=== PATIENT | female | born 1995 | race Hispanic/Latino ===

== ENCOUNTER 2018-03-05 22:46 | Emergency (ER) | payer SELFPAY ==
[2018-03-05] MEDS ORDERED: ONDANSETRON 4 MG/2 ML VIAL ONE (23:34)
[2018-03-05] MEDS ORDERED: FAMOTIDINE 20 MG TAB ONE (23:36)
[2018-03-06 00:21] LABS: Urine Blood NEGATIVE (NEG); Urine Glucose NEGATIVE (NEG); Urine Protein NEGATIVE (NEG); Urine pH 5.5 (5.0-7.0)
[2018-03-06 00:24] LABS: Absolute Lymphocytes (CBC) 2.5 K/uL (0.7-4.9); Absolute Monocytes 0.5 K/uL (0.1-1.3); Basophils % 0.5 % (0-1.3); Eosinophils % 1.7 % (0-4.4); Hematocrit 41.1 % (36.0-45.0); Lymphocytes % 27.3 % (15.3-44.8); MCH 30.3 pg (27.0-35.0); MCV 91.9 fL (80-100); MPV 8.8 fL (7.6-11.3); Monocytes % 5.6 % (3.3-12.3); RBC Red Blood Cell Count 4.47 M/uL (3.86-4.86)
[2018-03-06 00:28] LABS: Bicarbonate 27 mEq/L (21-31); Glucose Level 100 mg/dL (65-120); Lipase 12 U/L (22-51); Potassium 4.1 mEq/L (3.6-5.0); Sodium Level 140 mEq/L (135-145)
[2018-03-06 00:34] LABS: ALT/SGPT 23 IU/L (10-60); AST/SGOT 19 IU/L (10-42); Albumin 4.7 g/dL (3.2-5.5); Alkaline Phosphatase 67 IU/L (42-121); Amylase Level 66 U/L (28-100); BUN Blood Urea Nitrogen 14 mg/dL (6-20); Bilirubin Direct < 0.1 mg/dL (0-0.2); Bilirubin Total 0.3 mg/dL (0.3-1.2); Protein, Total 8.4 g/dL (6.0-8.3)
--- NOTE | 2018-03-06 00:44 | ER ---
Nurse's Notes [facility] Name: Randolph Metzger Age: 22 yrs Sex: Female : 1995 Arrival Date: 03/05/2018 Time: 22:50 Bed 27 Private MD: Diagnosis: Abdominal tenderness;Cystitis;Functional dyspepsia Presentation: 03/05 23:05 Presenting complaint: Patient states: Abdominal pain that began yesterday, pain worse lp1 today; Patient pointing to epigastric region; States radiating to back, worse when eating; Nausea, denies vomiting, diarrhea, constipation. Transition of care: patient was not received from another setting of care. Onset of symptoms was March 04, 2018. Initial Sepsis Screen: Does the patient meet any 2 criteria? No. Patient's initial sepsis screen is negative. Does the patient have a suspected source of infection? No. Patient's initial sepsis screen is negative. Care prior to arrival: None. 23:05 Method Of Arrival: Ambulatory lp1 23:05 Acuity: SOPHIA 3 lp1 Triage Assessment: 23:08 General: Appears in no apparent distress. Behavior is calm, cooperative, appropriate lp1 for age. Pain: Complains of pain in epigastric area Pain radiates to back Pain currently is 6 out of 10 on a pain scale. Quality of pain is described as aching, Pain began 1 day ago. Is intermittent. EENT: No signs and/or symptoms were reported regarding the EENT system. Neuro: Level of Consciousness is awake, alert, obeys commands, Oriented to person, place, time, situation. Cardiovascular: Patient's skin is warm and dry. Respiratory: Respiratory effort is even, unlabored. GI: Abdomen is non-distended, Bowel sounds present X 4 quads. Abdomen is tender to palpation in epigastric area Reports upper abdominal pain, nausea. : Denies burning with urination. Derm: Skin is pink, warm \T\ dry. Musculoskeletal: Circulation, motion, and sensation intact. 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 - Social history:: Smoking status: Patient/guardian denies using tobacco. Screenin:08 Abuse screen: Denies threats or abuse. Denies injuries from another. Nutritional lp1 screening: No deficits noted. Tuberculosis screening: No symptoms or risk factors identified. Fall Risk None identified. Assessment: 23:09 Reassessment: See Triage assessment. lp1 03/06 00:00 Reassessment: Patient appears in no apparent distress at this time. No changes from lp1 previously documented assessment. Patient and/or family updated on plan of care and expected duration. Pain level reassessed. 01:00 Reassessment: Dr. Angulo at bedside to assess patient. lp1 01:35 Reassessment: Patient returned from CT at this time. lp1 02:30 Reassessment: Patient and/or family updated on plan of care and expected duration. Pain lp1 level reassessed. Patient is alert, oriented x 3, equal unlabored respirations, skin warm/dry/pink. 03:30 Reassessment: Patient appears in no apparent distress at this time. No changes from lp1 previously documented assessment. Patient and/or family updated on plan of care and expected duration. Pain level reassessed. 04:30 Reassessment: Dr. Angulo at bedside to discuss discharge with patient; Patient states lp1 pain to epigastric area returning, Dr. Angulo aware; See [employer] for new orders;. Vital Signs: 03/05 23:07 BP 158 / 100; Pulse 79; Resp 18; Temp 98.6; Pulse Ox 100% on R/A; Weight 99.79 kg; lp1 Height 5 ft. 2 in. (157.48 cm); Pain 6/10; 23:54 BP 143 / 85; Pulse 94; Resp 18; Pulse Ox 98% on R/A; lp1 03/06 00:30 BP 134 / 89; Pulse 90; Resp 18; Pulse Ox 100% on R/A; lp1 01:15 BP 127 / 68; Pulse 92; Resp 18; Pulse Ox 100% on R/A; lp1 02:00 BP 113 / 77; Pulse 75; Resp 18; Pulse Ox 100% on R/A; lp1 03:00 BP 130 / 85; Pulse 83; Resp 18; Pulse Ox 100% on R/A; lp1 03:45 BP 112 / 67; Pulse 64; Resp 18; Pulse Ox 99% on R/A; lp1 04:45 BP 125 / 80; Pulse 72; Resp 18; Temp 98.8(O); Pulse Ox 99% on R/A; lp1 03/05 23:07 Body Mass Index 40.24 (99.79 kg, 157.48 cm) lp1 ED Course: 03/05 22:50 Patient arrived in ED. do 23:05 Sonia Gale, ZURI is Primary Nurse. lp1 23:07 Triage completed. lp1 23:07 Neeraj Dietrich MD is Attending Physician. sheila 23:07 Arm band placed on left wrist. lp1 23:10 Patient has correct armband on for positive identification. Placed in gown. Bed in low lp1 position. Pulse ox on. NIBP on. 23:43 X-ray completed. Portable x-ray completed in exam room. Patient tolerated procedure kw well. 23:53 Inserted saline lock: 20 gauge in right antecubital area, using aseptic technique. lp1 Blood collected. 03/06 00:43 Naeem Angulo MD is Hospitalizing Provider. [facility] 00:54 Chest Single View XRAY In Process Unspecified. EDMS 01:41 No provider procedures requiring assistance completed. Patient admitted, IV remains in lp1 place. 05:16 IV discontinued, No redness/swelling at site. Pressure dressing applied. lp1 Administered Medications: 03/05 23:53 Drug: Zofran 4 mg Route: IVP; Site: right antecubital; lp1 03/06 01:42 Follow up: Response: Nausea is decreased lp1 03/05 23:53 Drug: Pepcid 20 mg {Note: Given orally, no IV med available.} Route: IVP; Site: Other; lp1 03/06 01:42 Follow up: Response: No adverse reaction lp1 04:37 Drug: Zosyn 3.375 grams Route: IVPB; Infused Over: 60 mins; Site: right antecubital; lp1 05:17 Follow up: IV Status: Completed infusion lp1 04:39 Not Given (Med unavailable): fentaNYL (PF) 25 mcg IVP once lp1 Outcome: 00:43 Decision to Hospitalize by Provider. sheila 01:42 Condition: stable lp1 01:42 Instructed on the need for admit. 05:16 Discharged to home ambulatory, with significant other. lp1 05:16 Condition: stable 05:16 Discharge instructions given to patient, significant other, Instructed on discharge instructions, follow up and referral plans. medication usage, Demonstrated understanding of instructions, follow-up care, medications, Prescriptions given X 2. 05:17 Patient left the ED. lp1 Signatures: Dispatcher [employer] EDNeeraj Osborne MD MD cha Whitley, Kimberlee kw Pena, Laura, RN RN lp1 Lizet Christy do Corrections: (The following items were deleted from the chart) 04:40 04:30 Reassessment: Dr. Angulo at bedside to discuss discharge with patient lp1 lp1 05:17 04:30 Reassessment: Dr. Angulo at bedside to discuss discharge with patient; Patient lp1 states pain to epigastric area returning, Dr. Angulo aware; See [employer] for new orders lp1
--- NOTE | 2018-03-06 00:44 | EDPHYS ---
Physician Documentation [facility] Name: Randolph Metzger Age: 22 yrs Sex: Female : 1995 Arrival Date: 03/05/2018 Time: 22:50 Bed 27 Private MD: ED Physician Neeraj Dietrich HPI: 03/05 23:26 This 22 yrs old Female presents to ER via Ambulatory with complaints of sheila Abdominal Pain, Back Pain. 23:26 The patient presents with pain that is acute. 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 - Social history:: Smoking status: Patient/guardian denies using tobacco. ROS: 23:26 Constitutional: Negative for fever, chills, and weight loss, Eyes: Negative for injury, sheila pain, redness, and discharge, ENT: Negative for injury, pain, and discharge, Neck: Negative for injury, pain, and swelling, Cardiovascular: Negative for chest pain, palpitations, and edema, Respiratory: Negative for shortness of breath, cough, wheezing, and pleuritic chest pain, Back: Negative for injury and pain, : Negative for injury, bleeding, discharge, and swelling, MS/Extremity: Negative for injury and deformity, Skin: Negative for injury, rash, and discoloration, Neuro: Negative for headache, weakness, numbness, tingling, and seizure, Psych: Negative for depression, anxiety, suicide ideation, homicidal ideation, and hallucinations, Allergy/Immunology: Negative for hives, rash, and allergies, Endocrine: Negative for neck swelling, polydipsia, polyuria, polyphagia, and marked weight changes, Hematologic/Lymphatic: Negative for swollen nodes, abnormal bleeding, and unusual bruising. 23:26 Abdomen/GI: Positive for abdominal pain, of the epigastric area and right upper quadrant. Exam: 23:26 Constitutional: This is a well developed, well nourished patient who is awake, alert, sheila and in no acute distress. Head/Face: Normocephalic, atraumatic. Eyes: Pupils equal round and reactive to light, extra-ocular motions intact. Lids and lashes normal. Conjunctiva and sclera are non-icteric and not injected. Cornea within normal limits. Periorbital areas with no swelling, redness, or edema. ENT: Nares patent. No nasal discharge, no septal abnormalities noted. Tympanic membranes are normal and external auditory canals are clear. Oropharynx with no redness, swelling, or masses, exudates, or evidence of obstruction, uvula midline. Mucous membranes moist. Neck: Trachea midline, no thyromegaly or masses palpated, and no cervical lymphadenopathy. Supple, full range of motion without nuchal rigidity, or vertebral point tenderness. No Meningismus. Chest/axilla: Normal chest wall appearance and motion. Nontender with no deformity. No lesions are appreciated. Cardiovascular: Regular rate and rhythm with a normal S1 and S2. No gallops, murmurs, or rubs. Normal PMI, no JVD. No pulse deficits. Respiratory: Lungs have equal breath sounds bilaterally, clear to auscultation and percussion. No rales, rhonchi or wheezes noted. No increased work of breathing, no retractions or nasal flaring. Back: No spinal tenderness. No costovertebral tenderness. Full range of motion. Female : Normal external genitalia. Skin: Warm, dry with normal turgor. Normal color with no rashes, no lesions, and no evidence of cellulitis. MS/ Extremity: Pulses equal, no cyanosis. Neurovascular intact. Full, normal range of motion. Neuro: Awake and alert, GCS 15, oriented to person, place, time, and situation. Cranial nerves II-XII grossly intact. Motor strength 5/5 in all extremities. Sensory grossly intact. Cerebellar exam normal. Normal gait. Psych: Awake, alert, with orientation to person, place and time. Behavior, mood, and affect are within normal limits. 23:26 Respiratory: mild respiratory distress is noted, Respirations: normal, Breath sounds: are clear throughout, no bronchial sounds, no decreased breath sounds, no rales, rhonchi, no stridor, no wheezing. Vital Signs: 23:07 BP 158 / 100; Pulse 79; Resp 18; Temp 98.6; Pulse Ox 100% on R/A; Weight 99.79 kg; lp1 Height 5 ft. 2 in. (157.48 cm); Pain 6/10; 23:54 BP 143 / 85; Pulse 94; Resp 18; Pulse Ox 98% on R/A; lp1 03/06 00:30 BP 134 / 89; Pulse 90; Resp 18; Pulse Ox 100% on R/A; lp1 01:15 BP 127 / 68; Pulse 92; Resp 18; Pulse Ox 100% on R/A; lp1 02:00 BP 113 / 77; Pulse 75; Resp 18; Pulse Ox 100% on R/A; lp1 03:00 BP 130 / 85; Pulse 83; Resp 18; Pulse Ox 100% on R/A; lp1 03:45 BP 112 / 67; Pulse 64; Resp 18; Pulse Ox 99% on R/A; lp1 04:45 BP 125 / 80; Pulse 72; Resp 18; Temp 98.8(O); Pulse Ox 99% on R/A; lp1 03/05 23:07 Body Mass Index 40.24 (99.79 kg, 157.48 cm) lp1 MDM: 03/05 23:07 [facility]. [facility] 23:27 Data reviewed: vital signs, nurses notes, lab test result(s), EKG, radiologic studies, [facility] scan, plain films. 03/05 23:17 Order name: Urine Culture [facility] 03/05 23:18 Order name: Urine Dipstick--Ancillary (enter results); Complete Time: 00:41 [facility] 03/05 23:18 Order name: Urine --Ancillary (enter results); Complete Time: 00:41 [facility] 03/05 23:24 Order name: Amylase, Serum; Complete Time: 00:41 [facility] 03/05 23:24 Order name: Basic Metabolic Panel; Complete Time: 00:41 [facility] 03/05 23:24 Order name: CBC with Diff; Complete Time: 00:41 [facility] 03/05 23:24 Order name: Creatinine for Radiology; Complete Time: 00:41 [facility] 03/05 23:24 Order name: Hepatic Function; Complete Time: 00:41 [facility] 03/05 23:24 Order name: Lipase; Complete Time: 00:41 [facility] 03/05 23:24 Order name: Urine Microscopic Only [facility] 03/05 23:24 Order name: Urine Culture [facility] 03/05 23:24 Order name: Chest Single View XRAY [facility] 03/05 23:24 Order name: CT Abd/Pelvis - W/Contrast [facility] 03/05 23:17 Order name: Urine Dipstick-Ancillary (obtain specimen); Complete Time: 23:17 [facility] 03/05 23:18 Order name: Urine Dipstick-Ancillary (obtain specimen); Complete Time: 23:18 [facility] 03/05 23:18 Order name: Urine Test (obtain specimen); Complete Time: 23:18 [facility] 03/05 23:24 Order name: Urine Test (obtain specimen); Complete Time: 23:28 [facility] 03/05 23:24 Order name: IV Saline Lock; Complete Time: 23:53 [facility] 03/05 23:24 Order name: Labs collected and sent; Complete Time: 23:53 [facility] 03/05 23:24 Order name: Urine Dipstick-Ancillary (obtain specimen); Complete Time: 23:28 [facility] 03/06 00:50 Order name: CONS Physician Consult EDMS 03/06 00:50 Order name: NPO EDMS Administered Medications: 23:53 Drug: Zofran 4 mg Route: IVP; Site: right antecubital; [facility] 03/06 01:42 Follow up: Response: Nausea is decreased [facility] 03/05 23:53 Drug: Pepcid 20 mg {Note: Given orally, no IV med available.} Route: IVP; Site: Other; [facility] 03/06 01:42 Follow up: Response: No adverse reaction 1 04:37 Drug: Zosyn 3.375 grams Route: IVPB; Infused Over: 60 mins; Site: right antecubital; [facility] 05:17 Follow up: IV Status: Completed infusion lp1 04:39 Not Given (Med unavailable): fentaNYL (PF) 25 mcg IVP once lp1 Disposition: 03/06/18 00:43 Hospitalization ordered by Naeem Angulo for Observation. Preliminary diagnosis are Abdominal tenderness, Cystitis, Functional dyspepsia. - Bed requested for Telemetry/MedSurg (observation). - Status is Observation. lp1 - Condition is Stable. - Problem is new. - Symptoms have improved. UTI on Admission? Yes Signatures: Dispatcher [employer] EDMS Neeraj Dietrich MD MD cha Martinez, Eric em1 Sonia Gale, RN RN lp1
[2018-03-06 01:00] LABS: Urine Culture Reflex Order NOT NEEDED
[2018-03-06] MEDS ORDERED: NA CHLORIDE 0.9% 1,000 ML IV SCH (01:00)
[2018-03-06 01:01] LABS: Urine Bacteria <20 /HPF (<20); Urine RBC <5 /HPF (NONE SEEN)
[2018-03-06] MEDS ORDERED: PIPER/TAZO/NS 3.375gm 3.375 GM/100 ML BAG ONE (04:27)
[2018-03-06] MEDS ORDERED: HYDROCODONE/APAP 10/325 TAB PO ONE (04:38)
[2018-03-06] MEDS ORDERED: HYDROCODONE/APAP 10/325 TAB ONE (04:41)
--- NOTE | 2018-03-06 07:40 | RAD REPORT ---
EXAM DESCRIPTION: CT - Abdomen Pelvis W Contrast - 03/06/2018 6:43 am CLINICAL HISTORY: Abdominal pain. Epigastric pain since yesterday nausea COMPARISON: None. TECHNIQUE: Computed axial tomography of the abdomen and pelvis was obtained. 100 cc Isovue-300 is ad ministered intravenously. Oral contrast was given.A preliminary report was generated by [employer] and review prior to this dictation All CT scans are performed using dose optimization technique as appropriate and may include automated exposure control or mA/KV adjustment according to patient size. FINDINGS: A small to moderate hiatal hernia is present. Contrast is present within the esophagus. Fatty infiltration liver seen. Spleen, pancreas, adrenals and kidneys appear unremarkable. The appendix is normal caliber. There is no evidence of diverticulitis IMPRESSION: Small to moderate hiatal hernia with gastroesophageal reflux Fatty infiltration liver
--- NOTE | 2018-03-06 07:40 | RAD REPORT ---
EXAM DESCRIPTION: [place] Single View03/06/2018 12:54 am CLINICAL HISTORY: Chest pain COMPARISON: none FINDINGS: The lungs appear clear of acute infiltrate. The heart is normal size IMPRESSION: No acute abnormalities displayed
[2018-03-06] MEDS ORDERED: PIPER/TAZO/NS 3.375gm 3.375 GM/100 ML BAG IVPB SCH (09:00)
== END 2018-03-06 05:18 | disposition home or self-care (01) ==
LOC: ER 22:46 → ERHOLD 03-06 00:44 → UNDOADMOB 03-06 00:44 → UNDODISOB 03-06 05:18 → ER 03-06 05:18
DX: N30.90 Cystitis, unspecified without hematuria (principal); K30 Functional dyspepsia
CPT/HCPCS: 36415; 71045; 74177; 80048; 80076; 81003; 81015; 81025; 82150; 83690; 85025; 87086; 87088; 99284; J2405; J2543; Q9967

== ENCOUNTER 2019-04-01 21:38 | Emergency (ER) | payer SELFPAY ==
[2019-04-01 22:48] LABS: Absolute Lymphocytes (CBC) 1.3 K/uL (0.7-4.9); Absolute Monocytes 0.4 K/uL (0.1-1.3); Absolute Neutrophil 5.6 K/uL (1.8-8.0); Basophils % 0.5 % (0-1.3); Eosinophils % 2.1 % (0-4.4); Hematocrit 40.3 % (36.0-45.0); Lymphocytes % 17.1 % (15.3-44.8); Monocytes % 5.4 % (3.3-12.3); RBC Red Blood Cell Count 4.27 M/uL (3.86-4.86)
[2019-04-01 23:00] LABS: Bilirubin Direct 0.1 mg/dL (0-0.2); Bilirubin Total 0.4 mg/dL (0.2-1.0); Potassium 4.1 mmol/L (3.5-5.1)
[2019-04-01] MEDS ORDERED: LIDOCAINE VISCOUS 2% SOLN 15 ML UDC ONE (23:47)
[2019-04-01] MEDS ORDERED: MAGNE/ALUM HYDROXD 30 ML UCUP ONE (23:47)
[2019-04-01] MEDS ORDERED: NA CHLORIDE 0.9% 1,000 ML ONE (23:47)
[2019-04-02 01:10] LABS: Urine Blood NEGATIVE (NEG); Urine Glucose NEGATIVE (NEG); Urine Protein 1+ (NEG); Urine Specific Gravity 1.025 (1.005-1.030); Urine pH 6.5 (5.0-7.0)
--- NOTE | 2019-04-02 01:36 | ER ---
Nurse's Notes [facility] Name: Randolph Metzger Age: 23 yrs Sex: Female : 1995 Arrival Date: 04/01/2019 Time: 21:43 Bed 15 Private MD: Diagnosis: Unspecified abdominal pain Presentation: 04/01 21:44 Presenting complaint: Patient states: I have been having stomach pain, nausea, and ed1 diarrhea since Friday. Transition of care: patient was not received from another setting of care. Onset of symptoms was March 29, 2019. Risk Assessment: Do you want to hurt yourself or someone else? Patient reports no desire to harm self or others. Initial Sepsis Screen: Does the patient meet any 2 criteria? No. Patient's initial sepsis screen is negative. Does the patient have a suspected source of infection? No. Patient's initial sepsis screen is negative. Care prior to arrival: None. 21:44 Method Of Arrival: Ambulatory ed1 21:44 Acuity: SOPHIA 3 ed1 Triage Assessment: 21:45 General: Appears in no apparent distress. Behavior is calm, cooperative. Pain: ed1 Complains of pain in epigastric area Pain radiates to back, right upper quadrant and right lower quadrant Pain currently is 0 out of 10 on a pain scale. at worst was 8 out of 10 on a pain scale. Quality of pain is described as sharp. GI: Abdomen is non-distended, Bowel sounds present X 4 quads. Abd is soft and non tender X 4 quads. Reports upper abdominal pain, diarrhea, nausea, Patient currently denies vomiting. 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 - Social history:: Smoking status: Patient uses tobacco products, denies chronic smoking, but will smoke occasionally. - Ebola Screening: : Patient negative for fever greater than or equal to 101.5 degrees Fahrenheit, and additional compatible Ebola Virus Disease symptoms Patient denies exposure to infectious person Patient denies travel to an Ebola-affected area in the 21 days before illness onset No symptoms or risks identified at this time. Screenin:07 Abuse screen: Denies threats or abuse. Denies injuries from another. Nutritional wh screening: No deficits noted. Tuberculosis screening: No symptoms or risk factors identified. Fall Risk None identified. Assessment: 22:41 General: Appears in no apparent distress. Behavior is calm, cooperative, appropriate wh for age. Pain: Complains of pain in epigastric area Pain radiates to lower back Pain currently is 5 out of 10 on a pain scale. Pain began 2-3 days ago. Neuro: Level of Consciousness is awake, alert, obeys commands, Oriented to person, place, time, situation, Appropriate for age. Cardiovascular: Heart tones S1 S2. Respiratory: Airway is patent Respiratory effort is even, unlabored, Respiratory pattern is regular, symmetrical, Breath sounds are clear. GI: Abdomen is round non-distended, Bowel sounds present X 4 quads. Abd is soft and non tender. : No signs and/or symptoms were reported regarding the genitourinary system. EENT: No signs and/or symptoms were reported regarding the EENT system. Derm: Skin is intact, is healthy with good turgor, Skin is pink, warm \T\ dry. normal. Musculoskeletal: Range of motion: intact in all extremities. 23:45 Reassessment: Patient appears in no apparent distress at this time. Patient and/or family updated on plan of care and expected duration. Pain level reassessed. Patient is alert, oriented x 3, equal unlabored respirations, skin warm/dry/pink. 04/02 00:35 Reassessment: Patient appears in no apparent distress at this time. Patient and/or family updated on plan of care and expected duration. Pain level reassessed. Patient is alert, oriented x 3, equal unlabored respirations, skin warm/dry/pink. 01:53 Reassessment: Patient appears in no apparent distress at this time. Patient and/or family updated on plan of care and expected duration. Pain level reassessed. Patient is alert, oriented x 3, equal unlabored respirations, skin warm/dry/pink. Patient states feeling better. Vital Signs: 04/01 21:45 BP 145 / 80; Pulse 87; Resp 18; Temp 97.6(TE); Pulse Ox 99% on R/A; Weight 106.59 kg; ed1 Height 5 ft. 2 in. (157.48 cm); Pain 0/10; 22:46 BP 107 / 78; Pulse 90; Resp 18; Temp 98.1; Pulse Ox 96% on R/A; wh 23:30 BP 117 / 79; Pulse 87; Resp 17; Pulse Ox 99% on R/A; 04/02 00:37 BP 113 / 72; Pulse 76; Resp 18; Pulse Ox 100% on R/A; 01:54 BP 108 / 74; Pulse 84; Resp 18; Pulse Ox 99% on R/A; 04/01 21:45 Body Mass Index 42.98 (106.59 kg, 157.48 cm) ed1 ED Course: 04/01 21:43 Patient arrived in ED. es 21:45 Triage completed. ed1 21:45 Arm band placed on left wrist. ed1 21:49 Nic Bowser is Primary Nurse. 21:54 Sanjeev Blue NP is PHCP. pm1 21:54 Carlos Morgan MD is Attending Physician. pm1 22:10 Patient has correct armband on for positive identification. Placed in gown. Bed in low wh position. Call light in reach. Side rails up X 1. Pulse ox on. NIBP on. 22:20 Inserted saline lock: 22 gauge in right antecubital area, using aseptic technique. Blood collected. 04/02 01:02 CT Abd/Pelvis - W/Contrast In Process Unspecified. EDMS 01:55 No provider procedures requiring assistance completed. IV discontinued, intact, bleeding controlled, No redness/swelling at site. Administered Medications: 04/01 23:41 Drug: NS 0.9% 1000 ml Route: IV; Rate: 1000 ml; Site: right antecubital; 04/02 01:57 Follow up: Response: No adverse reaction; IV Status: Completed infusion 04/01 23:41 Drug: GI Cocktail without - (Maalox Suspension 30 ml, Lidocaine Liquid 2 % 15 wh ml) Route: PO; 04/02 01:55 Follow up: Response: No adverse reaction Outcome: 01:36 Discharge ordered by . pm1 01:56 Discharged to home ambulatory, with significant other. 01:56 Condition: good 01:56 Discharge instructions given to patient, Instructed on discharge instructions, follow up and referral plans. medication usage, POC Abd Pain Demonstrated understanding of instructions, follow-up care, medications, POC Prescriptions given X 2. 01:56 Patient left the ED. Signatures: Dispatcher [employer] Ngoc Fontana Erika RN RN ed1 Sanjeev Blue, LITHOGRAPHIC ETCHER LITHOGRAPHIC ETCHER pm1 Nic Bowser
--- NOTE | 2019-04-02 01:36 | EDPHYS ---
Physician Documentation [facility] Name: Randolph Metzger Age: 23 yrs Sex: Female : 1995 Arrival Date: 04/01/2019 Time: 21:43 Bed 15 Private MD: ED Physician Carlos Morgan HPI: 04/01 22:26 This 23 yrs old Female presents to ER via Ambulatory with complaints of pm1 Abdominal Pain. 22:26 The patient presents with abdominal pain in the epigastric area. pm1 22:26 Onset: The symptoms/episode began/occurred 3 day(s) ago. The symptoms do not radiate. pm1 Associated signs and symptoms: Pertinent positives: nausea, Pertinent negatives: chest pain, constipation, diarrhea, dysuria, fever, shortness of breath, vomiting. The symptoms are described as burning. Modifying factors: The symptoms are alleviated by not eating as much today. the symptoms are aggravated by food. Severity of pain: in the emergency department the pain has improved markedly. The patient has experienced a previous episode, approximately 1 years ago. The patient has not recently seen a physician. 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 - Social history:: Smoking status: Patient uses tobacco products, denies chronic smoking, but will smoke occasionally. - Ebola Screening: : Patient negative for fever greater than or equal to 101.5 degrees Fahrenheit, and additional compatible Ebola Virus Disease symptoms Patient denies exposure to infectious person Patient denies travel to an Ebola-affected area in the 21 days before illness onset No symptoms or risks identified at this time. ROS: 22:26 Constitutional: Negative for fever, chills, and weight loss, Eyes: Negative for injury, pm1 pain, redness, and discharge, ENT: Negative for injury, pain, and discharge, Neck: Negative for injury, pain, and swelling, Cardiovascular: Negative for chest pain, palpitations, and edema, Respiratory: Negative for shortness of breath, cough, wheezing, and pleuritic chest pain. 22:26 Back: Negative for injury and pain, : Negative for injury, bleeding, discharge, and swelling, MS/Extremity: Negative for injury and deformity, Skin: Negative for injury, rash, and discoloration, Neuro: Negative for headache, weakness, numbness, tingling, and seizure. 22:26 Abdomen/GI: Positive for abdominal pain, nausea, of the epigastric area, Negative for vomiting, diarrhea, constipation. Exam: 22:26 Constitutional: This is a well developed, well nourished patient who is awake, alert, pm1 and in no acute distress. Head/Face: Normocephalic, atraumatic. Eyes: Pupils equal round and reactive to light, extra-ocular motions intact. Lids and lashes normal. Conjunctiva and sclera are non-icteric and not injected. Cornea within normal limits. Periorbital areas with no swelling, redness, or edema. ENT: Nares patent. No nasal discharge, no septal abnormalities noted. Tympanic membranes are normal and external auditory canals are clear. Oropharynx with no redness, swelling, or masses, exudates, or evidence of obstruction, uvula midline. Mucous membranes moist. Neck: Trachea midline, no thyromegaly or masses palpated, and no cervical lymphadenopathy. Supple, full range of motion without nuchal rigidity, or vertebral point tenderness. No Meningismus. Chest/axilla: Normal chest wall appearance and motion. Nontender with no deformity. No lesions are appreciated. Cardiovascular: Regular rate and rhythm with a normal S1 and S2. No gallops, murmurs, or rubs. Normal PMI, no JVD. No pulse deficits. Respiratory: Lungs have equal breath sounds bilaterally, clear to auscultation and percussion. No rales, rhonchi or wheezes noted. No increased work of breathing, no retractions or nasal flaring. Abdomen/GI: Soft, non-tender, with normal bowel sounds. No distension or tympany. No guarding or rebound. No evidence of tenderness throughout. Back: No spinal tenderness. No costovertebral tenderness. Full range of motion. Skin: Warm, dry with normal turgor. Normal color with no rashes, no lesions, and no evidence of cellulitis. MS/ Extremity: Pulses equal, no cyanosis. Neurovascular intact. Full, normal range of motion. 22:26 Neuro: Orientation: is normal, Motor: is normal, moves all fours, Gait: is steady, at a normal pace, without difficulty. 23:30 Abdomen/GI: Inspection: obese Bowel sounds: normal, Palpation: soft, mild abdominal pm1 tenderness, in the epigastric area, mass, is not appreciated, rebound tenderness, is not appreciated. Vital Signs: 21:45 BP 145 / 80; Pulse 87; Resp 18; Temp 97.6(TE); Pulse Ox 99% on R/A; Weight 106.59 kg; ed1 Height 5 ft. 2 in. (157.48 cm); Pain 0/10; 22:46 BP 107 / 78; Pulse 90; Resp 18; Temp 98.1; Pulse Ox 96% on R/A; wh 23:30 BP 117 / 79; Pulse 87; Resp 17; Pulse Ox 99% on R/A; wh 04/02 00:37 BP 113 / 72; Pulse 76; Resp 18; Pulse Ox 100% on R/A; wh 01:54 BP 108 / 74; Pulse 84; Resp 18; Pulse Ox 99% on R/A; 04/01 21:45 Body Mass Index 42.98 (106.59 kg, 157.48 cm) ed1 MDM: 04/01 21:54 Patient medically screened. pm1 04/02 00:57 Data reviewed: vital signs. Data interpreted: Pulse oximetry: on room air is 100 %. pm1 Interpretation: normal. 01:32 ED course: CT Abd/Pelvis: No acute findings on this contrasted CT of the abdomen and pm1 pelvis. 01:35 Counseling: I had a detailed discussion with the patient and/or guardian regarding: the pm1 historical points, exam findings, and any diagnostic results supporting the discharge/admit diagnosis, lab results, radiology results, the need for outpatient follow up, to return to the emergency department if symptoms worsen or persist or if there are any questions or concerns that arise at home. 04/01 22:08 Order name: Basic Metabolic Panel; Complete Time: 23:11 pm1 04/01 22:08 Order name: CBC with Diff; Complete Time: 23:11 pm1 04/01 22:08 Order name: Creatinine for Radiology; Complete Time: 23:11 pm1 04/01 22:08 Order name: Hepatic Function; Complete Time: 23:11 pm1 04/01 22:08 Order name: Lipase; Complete Time: 23:11 pm1 04/01 23:40 Order name: Urine Dipstick--Ancillary (enter results); Complete Time: 01:22 ar5 04/01 22:08 Order name: IV Saline Lock; Complete Time: 22:29 pm04/01 22:08 Order name: Labs collected and sent; Complete Time: 22:29 pm1 04/01 22:08 Order name: Urine Dipstick-Ancillary (obtain specimen); Complete Time: 22:10 pm1 04/01 22:08 Order name: Urine Test (obtain specimen); Complete Time: 22:10 pm1 04/01 23:29 Order name: CT Abd/Pelvis - W/Contrast pm04/01 23:40 Order name: Urine --Ancillary (enter results); Complete Time: :22 ar5 Administered Medications: 04/01 23:41 Drug: NS 0.9% 1000 ml Route: IV; Rate: 1000 ml; Site: right antecubital; 04/02 01:57 Follow up: Response: No adverse reaction; IV Status: Completed infusion 04/01 23:41 Drug: GI Cocktail without - (Maalox Suspension 30 ml, Lidocaine Liquid 2 % 15 wh ml) Route: PO; 04/02 01:55 Follow up: Response: No adverse reaction Disposition: 04/02/19 01:36 Discharged to Home. Impression: Unspecified abdominal pain. - Condition is Stable. - Discharge Instructions: Abdominal Pain, Adult. - Prescriptions for Pepcid 20 mg Oral Tablet - take 1 tablet by ORAL route every 12 hours for 10 days; 20 tablet. Zofran 4 mg Oral Tablet - take 1 tablet by ORAL route every 12 hours As needed; 20 tablet. - Medication Reconciliation Form, Thank You Letter, Antibiotic Education, Prescription Opioid Use form. - Follow up: Emergency Department; When: As needed; Reason: Worsening of condition. Follow up: Private Physician; When: 2 - 3 days; Reason: Recheck today's complaints, Continuance of care, Re-evaluation by your physician. - Problem is new. - Symptoms have improved. Addendum: 04/05/2019 01:45 Co-signature as Attending Physician, Carlos Morgan MD. g s Signatures: Dispatcher [facility] EDHue Brokc RN RN ed1 Sanjeev Blue, GAR[employer] DOOR TO DOOR SELLING AGENT pm1 Nic Bowser Carlos Morgan MD MD gs Corrections: (The following items were deleted from the chart) 04/02 01:56 01:36 04/02/2019 01:36 Discharged to Home. Impression: Unspecified abdominal pain. Condition is Stable. Forms are Medication Reconciliation Form, Thank You Letter, Antibiotic Education, Prescription Opioid Use. Follow up: Emergency Department; When: As needed; Reason: Worsening of condition. Follow up: Private Physician; When: 2 - 3 days; Reason: Recheck today's complaints, Continuance of care, Re-evaluation by your physician. Problem is new. Symptoms have improved. pm1
--- NOTE | 2019-04-02 10:23 | RAD REPORT ---
EXAM DESCRIPTION: CT - Abdomen Pelvis W Contrast - 04/02/2019 1:02 am CLINICAL HISTORY: The patient is 23 years old and is Female; EPIGASTRIC PAIN TECHNIQUE: Axial computed tomography images of the abdomen and pelvis with intravenous contrast. S agittal and coronal reformatted images were created and reviewed. This CT exam was performed using one or more of the following dose reduction techniques: automated exposure control, adjustment of t he mA and/or kV according to patient size, and/or use of iterative reconstruction technique. COMPARISON: CT of the abdomen and pelvis March 02, 2018. FINDINGS: LUNG BASES: Unremarkable. No mass. No consolidation. ABDOMEN: LIVER: There is a diffuse decrease in hepatic parenchymal density, consistent with fatty infiltr ation. The liver is enlarged. GALLBLADDER AND BILE DUCTS: No calcified stones. No ductal dilation. PANCREAS: No ductal dilation. No mass. SPLEEN: Unremarkable. ADRENALS: Unremarkable. No mass. KIDNEYS AND URETERS: Unremarkable. No solid mass. No hydronephrosis. STOMACH AND BOWEL: The stomach is minimally fluid filled. The small bowel is normal in caliber. Minimal stool is present throughout the colon. There is no mucosal thickening or evidence of bowel ob struction. PELVIS: APPENDIX: The appendix is normal in caliber without surrounding inflammation. BLADDER: Unremarkable. No mass. REPRODUCTIVE: Unremarkable as visualized. ABDOMEN and PELVIS: INTRAPERITONEAL SPACE: Unremarkable. No free air. No significant fluid collection. BONES/JOINTS: No acute fracture. SOFT TISSUES: The soft tissues are normal. VASCULATURE: Unremarkable. No abdominal aortic aneurysm. LYMPH NODES: Unremarkable. No enlarged lymph nodes. IMPRESSION: No acute findings on this contrasted CT of the abdomen and pelvis to explain the patient 's symptoms. Electronically signed by: Ines Jose MD 04/02/2019 1:08 AM CDT Due to temporary technical issues with the PACS/Fluency reporting system, reports are being signed by the in house radiologist as a courtesy to ensure prompt reporting. The interpreting radiologist is f kimmyly responsible for the content of the report.
== END 2019-04-02 01:56 | disposition home or self-care (01) ==
LOC: ER 21:38
DX: R10.13 Epigastric pain (principal); Z72.0 Tobacco use
CPT/HCPCS: 36415; 74177; 80048; 80076; 81003; 81025; 83690; 85025; 96360; 96361; 99284; J7030; Q9967

== ENCOUNTER 2025-03-06 17:47 | Emergency (ER) | payer OTHER, SELFPAY ==
--- OUTSIDE RECORDS SUMMARY | 2025-03-06 17:52 | XMS REPORT | Continuity of Care Document ---
Author Name Unknown Address [address] [place] [address] [facility] Address [address] [place] [address] Care Team Providers Care Day Trader Name Role Phone PCP, PATIENT DOES NOT HAVE A Primary Care Physic rocio Unavailable AQUILINO KAYE Attending Clinician Unavailable MARY SHOEMAKER Attending Clinician Unavailable MARY SHOEMAKER Attending Clinician Unavailable Mary Haq Attending Clinician [phone] Attending Clinician Unavailable ARELY WALKER Attending Clinician Unava ilable SHERMAN GAN Attending Clinician Unavailable SHERMAN GAN Attending Clinician Unavailable Sherman Gan MD Attending Clinician [phone] MANI JORDAN Attending Clinician Unavailable Mani Jordan MD Attending Clinician [phone] Pcp, Patient Does Not Have A Attending Clinician Judith Alejandro Attending Clinician [phone] Dany Camacho MD Attending Clinician [phone] DANY CAMACHO Attending Clinician Unavailable SHERMAN GAN Admitting Clinician Unavailable Dany Camacho MD Admitting Clinician [phone] DANY CAMACHO Admitting Clinician Unavailable Payers Payer Name Policy Type Policy Number Effective Date Expirati on Date Source KEVIN Nair [employer] 94 [id number] 2024 00:00:00 DAKOTAHDianeRUDDY Segura/ SHABNAM FUENTES KUSH [id number] 2023 00:00:00 Problems Condition Name Condition Details Condition Category Status Onset Date Resolution Date Last Treatment Date Treating Clinician Comments Source Abnormal menstrual periods Abnormal menstrual periods Disease Active 02-01 00:00: 00 Shabnam Warren l BMI 40.0-44.9, adult BMI 40.0-44.9, adult Disease Active 02-01 00:00: 00 Shabnam webb Anemia Anemia Disease Active 2019-11 00:00: 00 [facility] Morbid obesity with body mass index of 40.0-49.9 Morbid obesity with body mass index of 40.0-49.9 Disease Active 2019-11 00:00: 00 [facility] Morbid obesity with body mass index of 40.0-49.9 Morbid obesity with body mass index of 40.0-49.9 Disease Active 2019-11 00:00: 00 [facility] Allergies, Adverse Reactions, Alerts Allergy Name Allergy Type Status Severity Reaction(s) Onset Date Inactive Date Treating Clinician Comments Source NO KNOWN ALLERGIE S Drug Class Active [facility] Social History Social Habit Start Date Stop Date Quantity Comments Source ASSERTION Possible [facility] Exposure to SARS-CoV-2 (event) Not sure [facility] History of tobacco use Current smoker [facility] Sexual orientation Judith Fuentes - External Alcoholic beverage intake 2025-02-01 00:00:00 2025-02-01 00:00:00 Current drinker of alcohol (finding) Shabnam Fuentes - External History of Social function 2025-02-01 00:00:00 2025-02-01 00:00:00 Shabnam Fuentes - External Alcohol Comment 2024-08-26 00:00:00 2024-08-26 00:00:00 socially Shabnam Fuentes - External Sex 2023-12-17 21:31:38 2023-12-17 21:31:38 Female (finding) Shabnam Fuentes - Jason Tobacco use and exposure 2020-10-10 00:00:00 2020-10-10 00:00:00 Smokeless tobacco non-user [facility] Alcohol intake 2020-10-10 00:00:00 2020-10-10 00:00:00 Ex-drinker (finding) [facility] Sex assigned at 1995 00:00:00 1995 00[birth year]00:00 F Shabnam Seperry - External Smoking Status Start Date Stop Date Source Never smoked tobacco Shabnam Pereaperry - External Ex-smoker 2020-10-10 00:00:00 2020-10-10 00:00:00 U [facility] Medications Ordered Medication Name Filled Medication Name Start Date Stop Date Current Medication? Ordering Clinician Indication Dosage Frequency Signature (SIG) Comments Components Source NaCl 0.9% (NS) bolus infusion 1,000 mL 03-06 05:00: 00 03-06 06:14 :00 No 1000mL at 999 mL/hr, 1,000 mL, IV Infusion, ONCE, 1 dose, On 03/06/25 at 0000, JINNY [facility] hydrocortis one (ANUSOL-HC) 25 mg suppository 03-06 00:00: 00 03-13 04:59 :00 Yes [id number] 25mg Insert 1 Suppositor y into rectum in the morning and 1 Suppositor y in the evening. Do all this for 12 doses. [facility] Phentermine HCl 37.5 MG oral Tablet 02-01 00:00: 00 Yes [id number] 37.5mg Take 1 tablet (37.5 mg total) by mouth every morning (before breakfast) . Shabnam webb Ipratropium Bowdle 0.03 % nasal Solution 01-30 00:00: 00 02-01 00:00 :00 No Shabnam webb Lidocaine HCl (Lidocaine Viscous HCl) 2 % mouth/throa t Solution 01-30 00:00: 00 02-01 00:00 :00 No Shabnam webb Diclofenac Sodium 75 MG oral Tablet Delayed Response 3-10 00:00: 00 02-01 00:00 :00 No [id number] 75mg Q.5D TAKE 1 TABLET BY MOUTH TWICE A DAY Shabnam webb Phentermine HCl 15 MG oral Capsule 3-07 00:00: 00 02-01 00:00 :00 No [id number] 30mg Take 2 capsules (30 mg total) by mouth every morning. Shabnam webb Diclofenac Sodium 75 MG oral Tablet Delayed Response 2-11 00:00: 00 Yes [id number] 75mg Q.5D Take 1 tablet (75 mg total) by mouth 2 times daily. Shabnam webb Cyclobenzap rine HCl 5 MG oral Tablet 2-11 00:00: 00 02-01 00:00 :00 No [id number] 5mg Q.[id number] 3D Take 1 tablet (5 mg total) by mouth 3 times daily as needed for muscle spasms. Shabnam webb Cefdinir 300 MG oral Capsule 2-03 00:00: 00 12-21 00:00 :00 No Shabnam webb Famotidine (PEPCID) 20 MG oral tablet 2023-11 2-31 00:00: 00 12-21 00:00 :00 No [id number] TAKE 1 TABLET (20 MG TOTAL) BY MOUTH TWICE A DAY NEEDED FOR HEARTBURN Shabnam webb Phentermine HCl 15 MG oral Capsule 2023-11- 00:00: 00 12-21 00:00 :00 No [id number] 30mg Take 2 capsules (30 mg total) by mouth every morning. Shabnam webb Vitamin D, Ergocalcife rol, 1.25 MG (42202 UT) oral Capsule 2023-11 0- 00:00: 00 12-21 00:00 :00 No [id number] 40016Q Q1W Take 1 capsule (50,000 units total) by mouth once a week. Shabnam webb Famotidine (PEPCID) 20 MG oral tablet 2023-11 00:00: 00 Yes [id number] 20mg Q.5D Take 1 tablet (20 mg total) by mouth 2 times daily as needed for heartburn. Shabnam webb Phentermine HCl 15 MG oral Capsule 2023-11 00:00: 00 10-01 00:00 :00 No [id number] 30mg Take 2 capsules (30 mg total) by mouth every morning. Shabnam webb ketorolac (TORADOL) injection 30 mg 07-07 11:30: 00 07-07 10:38 :00 No 30mg 30 mg, Slow IV Push, ONCE, 1 dose, On Fri07/07/24 at 0630, Routine [facility] diphenhydrA MINE:lidoca ine 2% viscous:maa lox 1:1:1 (FIRST-MOUT HWASH BLM) oral suspension 15 mL 07-07 10:30: 00 07-07 10:41 :00 No 15mL 15 mL, Oral, ONCE, 1 dose, On Fri07/07/24 at 0530, [facility] i[facility] (ISOVUE 370-500 mL) injection 100 mL 07-07 10:15: 00 07-07 10:15 :00 No [id number] 100mL 100 mL, Intravenou s, ONCE, 1 dose, On Fri07/07/24 at 0515, Routine [facility] pantoprazol e (PROTONIX) 40 mg EC tablet 07-07 00:00: 00 Yes [id number] 40mg Take 1 tablet by mouth in the morning. [facility] ondansetron (ZOFRAN) 4 mg tablet 07-07 00:00: 00 Yes [id number] 4mg Take 1 tablet by mouth every 8 (eight) hours as needed for Nausea and Vomiting (N/V). [facility] dicyclomine 20 mg tablet 07-07 00:00: 00 Yes [id number] 20mg Take 1 tablet by mouth every 6 (six) hours as needed for Abdominal pain. [facility] ondansetron (ZOFRAN-ODT ) disintegrat ing tablet 4 mg 11-22 12:45: 00 11-22 11:46 :00 No 4mg 4 mg, Oral, ONCE, 1 dose, On 11/22/23 at 0645, JINNY [facility] HYDROcodone -acetaminop hen (NORCO) 10-325 mg tablet 1 tablet 11-22 12:45: 00 11-22 11:46 :00 No 1{tbl} 1 tablet, Oral, ONCE, 1 dose, On 11/22/23 at 0645, JINNY [facility] clindamycin (CLEOCIN HCL) capsule 300 mg 11-22 12:30: 00 11-22 11:46 :00 No 300mg 300 mg, Oral, ONCE NOW, 1 dose, On 11/22/23 at 0630, JINNY
Re ason for Anti-Infec tive: Documented Infection< br>Documen freddy Infection Site: HEENT
D uration of Therapy: 7 days
Re stricted use approved by: ED PROVIDER [facility] ibuprofen 600 mg tablet 11-22 00:00: 00 Yes [id number] 600mg Take 1 tablet by mouth every 6 (six) hours as needed for Pain (scale 4-6). [facility] clindamycin 300 mg capsule 11-22 00:00: 00 12-03 05:59 :00 No [id number] 300mg Take 1 capsule by mouth in the morning and 1 capsule at noon and 1 capsule in the evening. Do all this for 10 days. [facility] acetaminoph en-codeine 300-30 mg tablet 11-22 00:00: 00 11-30 05:59 :00 No [id number] 1{tbl} Take 1 tablet by mouth every 6 (six) hours as needed for Pain (scale 7-10) for up to 7 days. Indication s: acute pain [facility] magnesium hydroxide (MILK OF MAGNESIA) 400 mg/5 mL suspension 30 mL 2019-11 15:45: 00 10-11 14:56 :00 No 30mL 30 mL, Oral, ONCE, 1 dose, Fri10/11/20 at 0945, Routine [facility] ferrous sulfate tablet 325 mg 2019-11 14:00: 00 Yes 325mg 325 mg, Oral, BID MEALS, First dose on Fri10/11/20 at 0800, Until Discontinu ed, Routine [facility] Polyethylen e Glycol 3350 (MIRALAX) powder 17 g 2019-11 03:00: 00 10-11 06:25 :00 No 17g 17 g, Oral, ONCE, 1 dose, Fri10/10/20 at 2100, Routine [facility] ferrous sulfate 325 mg (65 mg iron) tablet 2019-11 00:00: 00 11-11 05:59 :00 No [id number] 325mg Take 1 tablet by mouth 2 (two) times daily with meals for 30 days. [facility] ondansetron (ZOFRAN (PF)) injection 4 mg 2019-11 23:10: 58 Yes 4mg 4 mg, Slow IV Push, Q6HPRN, Starting Fri10/10/20 at 1710, Until Discontinu ed, Routine, Nausea and Vomiting (N/V) [facility] acetaminoph en (TYLENOL) tablet 650 mg 2019-11 23:10: 49 Yes 650mg 650 mg, Oral, Q6HPRN, Starting Fri10/10/20 at 1710, Until Discontinu ed, Routine, Pain (scale 1-3) [facility] ondansetron (ZOFRAN (PF)) injection 4 mg 2019-11 20:15: 00 10-10 19:02 :00 No 4mg 4 mg, Slow IV Push, ONCE, 1 dose, Fri10/10/20 at 1415, JINNY [facility] morpHINE injection 4 mg 2019-11 20:15: 00 10-10 19:02 :00 No 4mg 4 mg, Slow IV Push, ONCE, 1 dose, Fri10/10/20 at 1415, STAT [facility] iohexol (OMNIPAQUE 350 BULK-150 mL) injection 120 mL 2019-11 20:00: 00 10-10 19:53 :00 No 120mL 120 mL, Intravenou s, ONCE, 1 dose, 10/10/20 at 1400, Routine [facility] NaCl 0.9% (NS) bolus infusion 1,000 mL 2019-11 19:15: 00 10-10 18:57 :00 No 1000mL at 999 mL/hr, 1,000 mL, IV Infusion, ONCE, 1 dose, 10/10/20 at 1315, STAT [facility] Vital Signs Vital Name Observation Time Observation Value Comments S ource Systolic blood pressure 2025-03-06 06:16:00 151 mm[Hg] [facility] Diastolic blood pressure 2025-03-06 06:16:00 100 mm[Hg] [facility] Heart rate 2025-03-06 06:16:00 85 /min [facility] Respiratory rate 2025-03-06 06:16:00 18 /min [facility] Oxygen saturation in Arterial blood by Pulse oximetry 2025-03-06 06:16:00 98 /min [facility] Body temperature 2025-03-06 03:08:00 36.83 Shahnaz [facility] Body weight 2025-03-06 03:08:00 101.606 kg [facility] BMI 2025-03-06 03:08:00 40.97 kg/m2 [facility] Systolic blood pressure 2025-02-01 12:56:00 106 mm[Hg] Shabnam Menon ld - External Diastolic blood pressure 2025-02-01 12:56:00 82 mm[Hg] Shabnam moreland - External Heart rate 2025-02-01 12:56:00 87 /min Ines Fuentes - External Body temperature 2025-02-01 12:56:00 35.89 Shahnaz Shabnam Fuentes - External Respiratory rate 2025-02-01 12:56:00 14 /min Shabnam Fuentes - External Body height 2025-02-01 12:56:00 157.5 cm Tonja ey Seybold - External Body weight 2025-02-01 12:56:00 105.688 kg Tonja ey Seybold - External BMI 2025-02-01 12:56:00 42.62 kg/m2 Tonja ey Seybold - External Oxygen saturation in Arterial blood by Pulse oximetry 2025-02-01 12:56:00 99 /min Shabnam Seybo ld - External Systolic blood pressure 2024-12-21 14:24:00 114 mm[Hg] Shabnam Seybo ld - External Diastolic blood pressure 2024-12-21 14:24:00 76 mm[Hg] Shabnam Seybo ld - External Heart rate 2024-12-21 14:24:00 84 /min Kelse y Seybold - External Body temperature 2024-12-21 14:24:00 36.39 Shahnaz Shabnam Seybold - External Respiratory rate 2024-12-21 14:24:00 15 /min Shabnam Seybold - External Body height 2024-12-21 14:24:00 157.5 cm Tonja ey Seybold - External Body weight 2024-12-21 14:24:00 105.688 kg Tonja ey Seybold - External BMI 2024-12-21 14:24:00 42.62 kg/m2 Tonja ey Seybold - External Oxygen saturation in Arterial blood by Pulse oximetry 2024-12-21 14:24:00 100 /min Shabnam Seybo ld - External Systolic blood pressure 2024-10-01 15:48:00 118 mm[Hg] Shabnam Seybo ld - External Diastolic blood pressure 2024-10-01 15:48:00 74 mm[Hg] Shabnam Seybo ld - External Heart rate 2024-10-01 15:48:00 87 /min Kelse y Seybold - External Body temperature 2024-10-01 15:48:00 36.61 Shahnaz Shabnam Seybold - External Respiratory rate 2024-10-01 15:48:00 18 /min Shabnam Seybold - External Body height 2024-10-01 15:48:00 157.5 cm Tonja ey Seybold - External Body weight 2024-10-01 15:48:00 105.688 kg Tonja ey Seybold - External BMI 2024-10-01 15:48:00 42.62 kg/m2 Tonja ey Seybold - External Oxygen saturation in Arterial blood by Pulse oximetry 2024-10-01 15:48:00 99 /min Shabnam Alcantarao ld - External Systolic blood pressure 2024-08-26 15:08:00 122 mm[Hg] Shabnam Alcantarao ld - External Diastolic blood pressure 2024-08-26 15:08:00 80 mm[Hg] Shabnam Pereaybo ld - External Heart rate 2024-08-26 15:08:00 83 /min Ines smith Seybold - External Body temperature 2024-08-26 15:08:00 36 Shahnaz Shabnam Seybold - External Respiratory rate 2024-08-26 15:08:00 16 /min Shabnam Pereaybold - External Body height 2024-08-26 15:08:00 157.5 cm Tonja zafar Seybold - External Body weight 2024-08-26 15:08:00 110.859 kg Tonja ey Seybold - External BMI 2024-08-26 15:08:00 44.70 kg/m2 Tonja zafar Seybold - External Systolic blood pressure 2024-07-07 10:38:00 118 mm[Hg] [facility] Diastolic blood pressure 2024-07-07 10:38:00 71 mm[Hg] [facility] Heart rate 2024-07-07 10:38:00 64 [facility] 2024-07-07 10:38:00 36.83 Shahnaz [facility] Oxygen saturation in Arterial blood by Pulse oximetry 2024-07-07 10:38:00 98 /min [facility] Respiratory rate 2024-07-07 08:33:00 18 /min [facility] Body height 2024-07-07 08:33:00 157.5 cm [facility] Body weight 2024-07-07 08:33:00 106.595 kg [facility] BMI 2024-07-07 08:33:00 42.98 kg/m2 [facility] Systolic blood pressure 2023-11-22 11:19:00 149 mm[Hg] [facility] Diastolic blood pressure 2023-11-22 11:19:00 96 mm[Hg] [facility] Heart rate 2023-11-22 11:19:00 70 /min [facility] Body temperature 2023-11-22 11:19:00 36.78 Shahnaz [facility] Respiratory rate 2023-11-22 11:19:00 16 /min [facility] Body height 2023-11-22 11:19:00 157.5 cm [facility] Body weight 2023-11-22 11:19:00 104.962 kg [facility] BMI 2023-11-22 11:19:00 42.32 kg/m2 [facility] Oxygen saturation in Arterial blood by Pulse oximetry 2023-11-22 11:19:00 100 /min [facility] Systolic blood pressure 2020-10-11 13:19:00 112 mm[Hg] [facility] Diastolic blood pressure 2020-10-11 13:19:00 78 mm[Hg] [facility] Heart rate 2020-10-11 13:19:00 74 /min [facility] Body temperature 2020-10-11 13:19:00 36.78 Shahnaz [facility] Respiratory rate 2020-10-11 13:19:00 18 /min [facility] Oxygen saturation in Arterial blood by Pulse oximetry 2020-10-11 13:19:00 96 /min [facility] Body weight 2020-10-11 10:41:00 108.999 kg [facility] BMI 2020-10-11 10:41:00 43.95 kg/m2 [facility] Body height 2020-10-10 22:00:00 157.5 cm [facility] Procedures Procedure Date / Time Performed Performing Clinician Source POCT TEST 2025-03-06 06:14:00 Mary Shoemaker [facility] COMP. METABOLIC PANEL (47506) 2025-03-06 04:23:00 Mary Shoemaker [facility] CBC WITH DIFF 2025-03-06 04:23:00 Mary Shoemaker [facility] URINALYSIS 2025-03-06 04:23:00 Mary Shoemaker [facility] XR ABDOMEN 1 VW 2025-03-06 03:39:44 Mary Shoemaker [facility] POCT TEST 2024-07-07 08:49:00 Sherman Gan [facility] LIPASE 2024-07-07 08:46:00 Sherman Gan [facility] COMP. METABOLIC PANEL (30524) 2024-07-07 08:46:00 Sherman Gan [facility] CBC WITH DIFF 2024-07-07 08:46:00 Sherman Gan [facility] URINALYSIS 2024-07-07 08:46[facility] 2023-11-22 12:10:11 Docto r Unassigned, [employer] [facility] NOTICE OF PRIVACY PRACTICES 2023-11-22 11:14:33 Doctor Unassigned, [employer] [facility] CONSENT/REFUSAL FOR DIAGNOSIS AND TREATMENT 2023-11-22 11:12:29 Doctor Unassigned, [employer] [facility] BASIC METABOLIC PANEL (NA, K, CL, CO2, GLUCOSE, BUN, CREATININE, CA) 2020-10-11 06:49:00 Dany Camacho [facility] CBC WITH DIFF 2020-10-11 06:49:00 Dany Camacho [facility] PREPARE PACKED RBC 2020-10-11 00:00:18 Judith Meredith [facility] ABORH CONFIRMATION 2020-10-10 20:26:00 Judith Meredith [facility] COVID-19 (ID NOW RAPID TESTING) 2020-10-10 20:01:00 Judith Meredith [facility] HB ABO GROUPING 2020-10-10 19:59:00 [facility] 2020-10-10 19:57:47 Judith Meredith [facility] US GALL BLADDER 2020-10-10 19:46:33 [facility] 2020-10-10 18:57:00 [facility]UM 2020-10-10 18:57:00 Judith Meredith [facility] COMP. METABOLIC PANEL (20102) 2020-10-10 18:57:00 Judith Meredith [facility] CBC WITH DIFF 2020-10-10 18:57:00 [facility] 2020-10-10 18:57:00 Judith Meredith [facility] POCT TEST 2020-10-10 18:56:00 Judith Meredith [facility] NOTICE OF PRIVACY PRACTICES 2020-10-10 17:28:59 Doctor Unassigned, [employer] [facility] CONSENT/REFUSAL FOR DIAGNOSIS AND TREATMENT 2020-10-10 17:25:51 Doctor Unassigned, [employer] [facility] Plan of Care Planned Activity Planned Date Details Comments Source Encounters Start Date/Time End Date/Time Encounter Type Admission Type Attending [facility] Care Facility Care Department Encounter ID Source 2025-03-09 13:00:00 2025-03-09 13:00:00 Outpatient AQUILINO KAYE [id number] Shabnam Fuentes 2025-03-05 22:11:00 2025-03-06 01:17:00 Emergency X MARY SHOEMAKER [facility] ERT [id number] [facility] 2025-03-05 22:11:00 2025-03-06 01:17:00 Emergency Mary Shoemaker [facility] [id number] [facility] 2025-02-20 00:00:00 2025-02-20 00:00:00 Outpatient AQUILINO KAYE [id number] Shabnam Fuentes 2025-02-09 00:00:00 2025-02-09 00:00:00 Outpatient HUNDL, AQUILINO HACKETT [id number] Shabnam Pereaybshad 2025-02-01 08:00:00 2025-02-01 08:00:00 Outpatient HUNDL, AQUILINO HACKETT [id number] Shabnam Pereaybshad 2025-01-31 00:00:00 2025-01-31 00:00:00 Outpatient HUNDL, AQUILINO HACKETT [id number] Shabnam Pereaybshad 2025-01-17 00:00:00 2025-01-17 00:00:00 Outpatient HUNDL, AQUILINO HACKETT [id number] Shabnam Pereaybshad 2025-01-12 00:00:00 2025-01-12 00:00:00 Outpatient HUNDL, AQUILINO [facility]ACKETT [id number] [facility] 2024-12-22 00:00:00 2024-12-22 00:00:00 Outpatient HUNDL, AQUILINO HACKETT [id number] [facility] 2024-12-21 09:15:00 2024-12-21 09:15:00 Outpatient LABEdgar HACKETT [id number] Shabnam Pereaybshad 2024-12-21 08:30:00 2024-12-21 08:30:00 Outpatient HUNDL, AQUILINO HACKETT [id number] Shabnam Pereaybshad 2024-11-16 09:00:00 2024-11-16 09:00:00 Outpatient HUNDL, AQUILINO HACKETT [id number] [facility] 2024-11-09 00:00:00 2024-11-09 00:00:00 Outpatient HUNDL, AQUILINO HACKETT [id number] Shabnam Seybshad 2024-10-01 10:00:00 2024-10-01 10:00:00 Outpatient HUNDL, AQUILINO HACKETT [id number] Shabnam Seybold 2024-09-07 13:30:00 2024-09-07 13:30:00 Outpatient ARELY WALKER [id number] Shabnam Seybshad 2024-08-31 00:00:00 2024-08-31 00:00:00 Outpatient HUNDL, AQUILINO HACKETT [id number] [facility] 2024-08-26 11:15:00 2024-08-26 11:15:00 Outpatient LAB90 SHABNAM HACKETT [id number] Shabnam Fuentes 2024-08-26 10:30:00 2024-08-26 10:30:00 Outpatient [facility]ILINO [facility]AYE [id number] [facility] 2024-08-26 00:00:00 2024-08-26 00:00:00 Outpatient AQUILINO KAYE [id number] [facility] 2024-07-07 03:35:00 2024-07-07 05:53:00 Emergency X SHERMAN GAN WAKILI [facility] ERT [id number] [facility] 2024-07-07 03:35:00 2024-07-07 05:53:00 Emergency Sherman Gan [facility] [id number] [id number] [id number] [facility] 2023-11-22 05:20:00 2023-11-22 06:28:00 Emergency X MANI JORDAN [facility] ERT [id number] [facility] 2023-11-22 05:20:00 2023-11-22 06:28:00 Emergency Mani Jordan [facility] [id number] [id number] [id number] [id number] [facility] 2023-11-20 00:00:00 2023-11-20 00:00:00 Patient Secure Msg Pcp, Patient Does Not Have A [facility] [id number] [id number] [id number] [id number] [facility] 2020-10-10 11:38:00 2020-10-11 15:43:00 Emergency Judith Meredith [facility] [id number] [id number] [id number] [facility] 2020-10-10 11:38:00 2020-10-11 15:43:00 Outpatient DANY CHAVIS [facility] [id number] [facility] Results Test Description Test Time Test Comments Results Result Co mments Source [facility] 04:48:00* Test Item Value Reference Range Interpretation Comme nts NA (test code = 2797918946) 139 mmol/L 135-145 K (test code = 3173121119) 4.2 mmol/L 3.5-5.0 CL (test code = 1578489695) 103 mmol/L 98-108 CO2 TOTAL (test code = 2299695342) 28 mmol/L 23-31 AGAP (test code = 9381793011) 8 2-16 BUN (test code = 3204713664) 13 mg/dL 7-23 GLUCOSE (test code = 7483941222) 94 mg/dL 70-110 CREATININE (test code = 2160-0) 0.78 mg/dL 0.50-1.04 TOTAL BILI (test code = 5031578599) 0.7 mg/dL 0.1-1.1 CALCIUM (test code = 6096389312) 9.3 mg/dL 8.6-10.6 T PROTEIN (test code = 5872189244) 7.9 g/dL 6.3-8.2 ALBUMIN (test code = 1981426487) 4.6 g/dL 3.5-5.0 ALK PHOS (test code = 8780472271) 60 U/L 34-122 ALTv (test code = 1742-6) 19 U/L 5-35 AST(SGOT) (test code = 5194257014) 23 U/L 13-40 eGFR (test code = 36152-5) 104.3 mL/min/1.73m2 CKD-EPI eGFR (20 21). Assuming creatinine has been stable day-to-day for at least three months, the eGFR indicates Category G1 (>= 90 mL/min/1.73 m2) [facility] WITH [id number] 04:39:44* Test Item Value Reference Range Interpretation Comme nts WBC (test code = 6690-2) 10.38 4.30-11.10 RBC (test code = 789-8) 3.98 3.93-5.25 HGB (test code = 718-7) 12.1 g/dL 11.6-15.0 HCT (test code = 4544-3) 36 % 35.7-45.2 MCV (test code = 787-2) 90.5 fL 80.6-95.5 MCH (test code = 785-6) 30.4 pg 25.9-32.8 MCHC (test code = 786-4) 33.6 g/dL 31.6-35.1 RDW-SD (test code = 71973-7) 43.4 fL 39.0-49.9 RDW-CV (test code = 788-0) 13.2 % 12.0-15.5 PLT (test code = 777-3) 345 166-358 MPV (test code = 60420-3) 10.5 fL 9.5-12.9 NRBC/100 WBC (test code = 2382996093) 0 0.0-10.0 NRBC x10^3 (test code = 3872275115) See_Comment [Automated messa ge] The system which generated this result transmitted reference range: 10*3/?L. The reference range was not used to interpret this result as normal/abnormal. GRAN MAT (NEUT) % (test code = 770-8) 69.5 % IMM GRAN % (test code = 1459917245) 0.2 % LYMPH % (test code = 736-9) 22.1 % MONO % (test code = 5905-5) 6.2 % EOS % (test code = 713-8) 1.2 % BASO % (test code = 706-2) 0.8 % GRAN MAT x10^3(ANC) (test code = 9700742865) 7.23 10*3/uL 1.88-7.09 H IMM GRAN x10^3 (test code = 6152314638) 0.00-0.06 LYMPH x10^3 (test code = 731-0) 2.29 10*3/uL 1.32-3.29 MONO x10^3 (test code = 742-7) 0.64 10*3/uL 0.33-0.92 EOS x10^3 (test code = 711-2) 0.12 10*3/uL 0.03-0.39 BASO x10^3 (test code = 704-7) 0.08 10*3/uL 0.01-0.07 H Lab Interpretation (test code = 55649-4) [facility] [id number] 03:45:36XR ABDOMEN 1 VW 03/05/2025 10:35 PM HISTORY: constipation . COMPARISON: Correlation with abdomen andpelvis CT dated 07/07/2024. FINDINGS: Nonspecific bowel gas pattern without signs of obstruction or significantfecal loading. No acute osseous abnormality.[facility] [id number] 09:27:52* Test Item Value Reference Range Interpretation Comme nts NA (test code = 5554573108) 139 mmol/L 135-145 K (test code = 3053002941) 4.0 mmol/L 3.5-5.0 CL (test code = 5676493532) 106 mmol/L 98-108 CO2 TOTAL (test code = 9228276658) 23 mmol/L 23-31 AGAP (test code = 8451834211) 10 2-16 BUN (test code = 9653874756) 11 mg/dL 7-23 GLUCOSE (test code = 6164721874) 93 mg/dL 70-110 CREATININE (test code = 2160-0) 0.70 mg/dL 0.50-1.04 TOTAL BILI (test code = 5072882065) 0.3 mg/dL 0.1-1.1 CALCIUM (test code = 2030967945) 8.2 mg/dL 8.6-10.6 L T PROTEIN (test code = 9288148832) 7.3 g/dL 6.3-8.2 ALBUMIN (test code = 7207300359) 4.2 g/dL 3.5-5.0 ALK PHOS (test code = 7620335296) 70 U/L 34-122 ALTv (test code = 1742-6) 22 U/L 5-35 AST(SGOT) (test code = 5771326879) 20 U/L 13-40 eGFR (test code = 06978-2) 118.7 mL/min/1.73m2 CKD-EPI eGFR (2020). Assuming creatinine has been stable day-to-day for at least three months, the eGFR indicates Category G1 (>= 90 mL/min/1.73 m2) Lab Interpretation (test code = 03352-9) [facility]normal [facility]Lip[facility], [id number] 09:27:52* Test Item Value Reference Range Interpretation Comme nts LIPASE (test code = 7691882370) 103 U/L 0-220 Lab Interpretation (test cod e = 59289-7) Normal [facility] with Igfejqeppglr0718-94-95 09:14:13* Test Item Value Reference Range Interpretation Comme nts WBC (test code = 6690-2) 9.23 4.30-11.10 RBC (test code = 789-8) 3.95 3.93-5.25 HGB (test code = 718-7) 12.3 g/dL 11.6-15.0 HCT (test code = 4544-3) 38.0 % 35.7-45.2 MCV (test code = 787-2) 96.2 fL 80.6-95.5 H MCH (test code = 785-6) 31.1 pg 25.9-32.8 MCHC (test code = 786-4) 32.4 g/dL 31.6-35.1 RDW-SD (test code = 12223-3) 45.1 fL 39.0-49.9 RDW-CV (test code = 788-0) 12.8 % 12.0-15.5 PLT (test code = 777-3) 323 166-358 MPV (test code = 36802-9) 10.7 fL 9.5-12.9 NRBC/100 WBC (test code = 9288063817) 0.0 0.0-10.0 NRBC x10^3 (test code = 2611151122) See_Comment [Automated messa ge] The system which generated this result transmitted reference range: 10*3/?L. The reference range was not used to interpret this result as normal/abnormal. GRAN MAT (NEUT) % (test code = 770-8) 61.0 % IMM GRAN % (test code = 9953309537) 0.30 % LYMPH % (test code = 736-9) 29.0 % MONO % (test code = 5905-5) 6.4 % EOS % (test code = 713-8) 2.8 % BASO % (test code = 706-2) 0.5 % GRAN MAT x10^3(ANC) (test code = 3297592960) 5.62 10*3/uL 1.88-7.09 IMM GRAN x10^3 (test code = 7969245320) 0.03 10*3/uL 0.00-0.06 LYMPH x10^3 (test code = 731-0) 2.68 10*3/uL 1.32-3.29 MONO x10^3 (test code = 742-7) 0.59 10*3/uL 0.33-0.92 EOS x10^3 (test code = 711-2) 0.26 10*3/uL 0.03-0.39 BASO x10^3 (test code = 704-7) 0.05 10*3/uL 0.01-0.07 Lab Interpretation (test code = 79213-4) Abnormal [facility]POAZ [id number] 08:49:00* Test Item Value Reference Range Interpretation Comme nts POCT PREG (test code = 1605) Negative On board controls acceptable with C Line (test code = 3574) Yes POCT PREG LOT # (test code = 3575) [id number] POCT PREG TEST DATE ( test code = 3576) 2025-03-19 Lab Interpretation (test cod e = 05055-0) Normal [facility] (NA, K, CL, CO2, GLUCOSE, BUN, CREATININE, CA)2020-10-11 08:01:00* Test Item Value Reference Range Interpretation Comme nts NA (test code = 8543000614) 138 mmol/L 135-145 K (test code = 3288954540) 4.1 mmol/L 3.5-5 CL (test code = 5838722265) 105 mmol/L 98-108 CO2 TOTAL (test code = 6689655475) 25 mmol/L 23-31 AGAP (test code = 0611660252) 2-16 BUN (test code = 2317063985) 13 mg/dL 7-23 GLUCOSE (test code = 4139757769) 97 mg/dL 70-110 CREATININE (test code = 9649106144) 0.92 mg/dL 0.5-1.04 CALCIUM (test code = 1259982746) 8.6 mg/dL 8.6-10.6 eGFR Calculation (Non-) (test code = 8624142712) mL/min/1.73m2 eGFR Calculation () (test code = 4002596407) mL/min/1.73m2 JOANN (test code = JOANN) Association of Glomerular Filtration Rate (GFR) and Staging of Kidney Disease* + -+ + ---+| GFR (mL/min/1.73 m2) ?| With Kidney Damage ?| ?Without Kidney Damage+ -------+ ------+ ---------+| ?>90 ?| ?Stage one ?| ? Normal ?+ --+ -+ ----+| ?60-89 ?| ?Stage two ?| ? Decreased GFR ? + -+ + ---+| ?30-59 ?| ?Stage three ?| ? Stage three ? + -+ + ---+| ?15-29 ?| ?Stage four ? | ? Stage four ?+ --+ -+ ----+| ?<15 (or dialysis) ? ?| ?Stage five ? | ? Stage five ?+ --+ -+ ----+ *Each stage assumes the associated GFR level has been in effect for at least three months. ?Stages 1 to 5, with or without kidney disease, indicate chronic kidney disease. Notes: Determination of stages one and two (with eGFR >59mL/min/1.73 m2) requires estimation of kidney damage for at least three months as defined by structural or functional abnormalities of the kidney, manifested by either:Pathological abnormalities or Markers of kidney damage (including abnormalities in the composition of the blood or urine or abnormalities in imaging tests). [facility] with Gpeihfihooqu1046-35-80 07:10:00* Test Item Value Reference Range Interpretation Comme nts WBC (test code = 6690-2) See_Comment [Automated messa ge] The system which generated this result transmitted reference range: 4.30 - 11.10 10*3/?L. The reference range was not used to interpret this result as normal/abnormal. RBC (test code = 789-8) See_Comment L [Automated messa ge] The system which generated this result transmitted reference range: 3.93 - 5.25 10*6/?L. The reference range was not used to interpret this result as normal/abnormal. HGB (test code = 718-7) 7.6 g/dL 11.6-15 L HCT (test code = 4544-3) 25.7 % 35.7-45.2 L MCV (test code = 787-2) 77.6 fL 80.6-95.5 L MCH (test code = 785-6) 23.0 pg 25.9-32.8 L MCHC (test code = 786-4) 29.6 g/dL 31.6-35.1 L RDW-SD (test code = 32323-2) 43.9 fL 39-49.9 RDW-CV (test code = 788-0) 15.8 % 12-15.5 H PLT (test code = 777-3) See_Comment H [Automated messa ge] The system which generated this result transmitted reference range: 166 - 358 10*3/?L. The reference range was not used to interpret this result as normal/abnormal. MPV (test code = 68156-3) 10.1 fL 9.5-12.9 NRBC/100 WBC (test code = 0780998213) See_Comment [Automated me ssage] The system which generated this result transmitted reference range: 0.0 - 10.0 /100 WBCs. The reference range was not used to interpret this result as normal/abnormal. NRBC x10^3 (test code = 9566693909) <0.01 See_Comment [Automated messa ge] The system which generated this result transmitted reference range: 10*3/?L. The reference range was not used to interpret this result as normal/abnormal. GRAN MAT (NEUT) % (test code = 770-8) 59.0 % IMM GRAN % (test code = 5997753228) 0.40 % LYMPH % (test code = 736-9) 31.4 % MONO % (test code = 5905-5) 6.4 % EOS % (test code = 713-8) 2.1 % BASO % (test code = 706-2) 0.7 % GRAN MAT x10^3(ANC) (test code = 0649461953) 4.76 10*3/uL 1.88-7.09 IMM GRAN x10^3 (test code = 9072876715) 0.03 10*3/uL 0-0.06 LYMPH x10^3 (test code = 731-0) 2.54 10*3/uL 1.32-3.29 MONO x10^3 (test code = 742-7) 0.52 10*3/uL 0.33-0.92 EOS x10^3 (test code = 711-2) 0.17 10*3/uL 0.03-0.39 BASO x10^3 (test code = 704-7) 0.06 10*3/uL 0.01-0.07 Lab Interpretation (test code = 41809-9) Abnormal [facility]Prep[facility] Packed RBC (in units), 1 Units 2020-10-11 00:00:18* Test Item Value Reference Range Interpretation Comme nts Cross Match Result (test code = 4409) Compatible ISBT Blood Type Code (test code = 803955) Unit Blood Type (test code = 4410) O Pos Unit Number (test code = 4411) [id number] Blood Expiration Date & Time (test code = 009849) Status Information (test code = 4412) Issued Product Identification (test code = 4413) Red Blood Cells Product Code (test code = 4414) [id number] Performed at [facility] Laboratory [facility] Blood [address] [place] [address]Hsep Free: [phone] No. [id number] [facility] HospitalABORH ZFKRUIPJBDGJ3083-26-28 20:59:28* Test Item Value Reference Range Interpretation Comme nts ABO & RH (test code = 20) O Positive Performed at [facility] Laboratory [facility] Blood [address] [place], [place] [id number] Free: [phone] No. [id number] [facility]Type and Screen - ONCE [id number] 20:54:36 * Test Item Value Reference Range Interpretation Comme nts ABO & RH (test code = 20) O Positive Performed at [facility] Blood [address] [place] [phone] Free: [phone] No. [id number] IAT (test code = 1185) Negative Performed at [facility] Blood [address] [place] [phone] Free: [phone] No. [id number] [facility] HospitalCOVID-19 (ID NOW RAPID TESTING)2020-10-10 20:38:00* Test Item Value Reference Range Interpretation Comme nts SARS-CoV-2 Rapid ID NOW (test code = 49420-5) Not Detected Not Detected JOANN (test code = JOANN) ID NOW COVID-19 As say is an isothermal nucleic acid amplification test intended for the qualitative detection of nucleic acid from SARS-CoV-2 viral RNA in nasopharyngeal (SAFETY COORDINATOR) specimens. It is used under Emergency Use Authorization (EUA) by FDA. The limit of detection (LOD) of the assay is 125 Genome Equivalents/mL. A positive result is indicative of the presence of SARS-CoV-2 RNA. ?Clinical correlation with patient history and other diagnostic information is necessary to determine patient infection status. A negative (Not Detected) result does not preclude SARS-CoV-2 infection. In patients with clinical symptoms and other tests that are consistent with SARS-CoV-2 infection, negative results should be treated as presumptive negative and a new specimen should be tested with alternative PCR molecular test. Invalid: Please collect a new specimen for repeat patient testing if clinically indicated. Lab Interpretation (test code = 84948-3) Normal [facility] PELVIS W [id number] 20:04:50CT Abdomen and Pelvis with intravenous contrast. CLINICAL HISTORY: Acute generalized abdominal pain. DOSE: Up-to-date CT equipment and radiation dose reduction techniques wereemployed. CTDIvol: 14.37mGy. DLP: 784 mGy-cm. TECHNIQUE : Contiguous axial imaging from the level of the lung basesthrough the pubic symphysis were performed after the uncomplicatedadministration of Omnipaque contrast material. Coronal and sagittalreconstructions were obtained. Auto mA and/or iterative reconstruction wereused to reduce radiation dose. FINDINGS: ? Lower lungs: Short sliding hiatal hernia. Liver, Gallbladder and Spleen: Liver measures 15.6 cm with mild diffusehepatic steatosis is suspected. Spleen measur es approximately 12.7 x 5 cm.No calcified gallstones detected. Biliary ducts and the pancreatic ductappear of normal size. Peritoneum: ?No free air or free fluid. Scattered 1 cm or smaller sizelymph nodes are seen in the root of small bowel mesentery. Pancreas and Adrenals: ?Unremarkable pancreas and adrenal glands. Kidneys and Ureters: ?No visible calculi in the renal collecting systems. No hydroureter or hydronephrosis. Mild fullness is seen in collectingsystem and ureters on both sides without any obstructing stone in theureters. Vessels: Normal. Retroperitoneum: No abnormal fluid or lympha denopathy. Bowel: No acute findings. Normal appendix is visualized. Bladder and Reproductive Organs: Small cysts in both ovaries consistentwith physiologic changes. No fluid in the pelvis. Bones: No acute findings. Soft tissues: Unremarkable. CONCLUSION: No acute intra-abdominal or pelvic abnormalities detected. [facility], Radiant Results Inft User - 10/10/2020 2:05 PM CSTCT Abdomen and Pelvis with intravenous contrast.CLINICAL HISTORY: Acute generalized abdominal pain.DOSE: Up-to-date CT equipment and radiation dose reduction techniques wereemployed. CTDIvol: 14.37 mGy. DLP: 784 mGy-cm.TECHNIQUE : Contiguous axial imaging from the level of the lung basesthrough the pubic symphysis were performed after the uncomplicatedadministration of Omnipaque contrast material. Coronal and sagittalreconstructions were obtained. Auto mA and/or iterative reconstruction wereused to reduce radiation dose.FINDINGS: Lower lungs: Short sliding hiatal hernia.Liver, Gallbladder and Spleen: Liver measures 15.6 cm with mild diffusehepatic steatosis is suspected. Spleen measures approximately 12.7 x 5 cm.No calcified gallstones detected. Biliary ducts and the pancreatic ductappear of normal size.Peritoneum: Nofree air or free fluid. Scattered 1 cm or smaller sizelymph nodes are seen in the root of small bowel mesentery.Pancreas and Adrenals: Unremarkable pancreas and adrenal glands.Kidneys and Ureters: Novisible calculi in the renal collecting systems. No hydroureter or hydronephrosis. Mild fullness isseen in collectingsystem and ureters on both sides without any obstructing stone in theureters. Vessels: Normal.Retroperitoneum: No abnormal fluid or lymphadenopathy.Bowel: No acute findings. Normal appendix is visualized.Bladder and Reproductive Organs: Small cysts in both ovaries consistentwith physiologic changes. No fluid in the pelvis.Bones: No acute findings.Soft tissues: Unremarkable.CONCLUSION: No acute intra-abdominal or pelvic abnormalities detected.[facility] HospitalUS GALL [id number] 19:51:43HISTORY: RUQ Abdominal pain. TECHNIQUE: Gallbladder is evaluated in multiple planes with the patient indifferent positions. Color imaging is utilized. FINDINGS: Gallbladder is of normal size and shape with no edema orthickening of the lin. No gallstones. No biliary sludge or crystals seen.No freefluid detected in pericholecystic space. Common hepatic duct is 4.5mm. Hepatic and portal venous system appeared patent. CONCLUSION: [facility]. [facility] Inft User - 10/10/2020 1:52 PM CSTHISTORY: RUQ Abdominal pain.TECHNIQUE: Gallbladder is evaluated in multiple planes with the patient indifferent positions. Color imaging is utilized.FINDINGS: Gallbladder is of normal size and shape with no edema orthickening of the lin. No gallstones. No biliary sludge or crystals seen.No free fluid detected in pericholecystic space. Common hepatic duct is 4.5mm. Hepatic and portal venous system appeared patent. CONCLUSION: Normal study. [facility] HospitalURINALYSIS2020-12-01 19:46:00* Test Item Value Reference Range Interpretation Comme nts APPEARANCE (test code = 2985278075) Hazy Clear A COLOR (test code = 4697354808) Yellow Yellow PH (test code = 2096069265) 4.8-8.0 SP GRAVITY (test code = 5563992926) 1.003-1.030 GLU U QUAL (test code = 4908553633) Normal Normal BLOOD (test code = 9864268557) Negative Negative KETONES (test code = 8615175692) Negative Negative PROTEIN (test code = 2887-8) Negative Negative UROBILIN (test code = 4436126960) Normal Normal BILIRUBIN (test code = 5331666915) Negative Negative NITRITE (test code = 9347585155) Negative Negative LEUK LUIS (test code = 9998408677) 500/uL Negative A RBC/HPF (test code = 6102938438) See_Comment [Automated YogaTraila ge] The system which generated this result transmitted reference range: 0 - 3 HPF. The reference range was not used to interpret this result as normal/abnormal. WBC/HPF (test code = 0195620256) See_Comment [Automated YogaTraila ge] The system which generated this result transmitted reference range: 0 - 5 HPF. The reference range was not used to interpret this result as normal/abnormal. BACTERIA (test code = 1436686008) Moderate Negative A MUCOUS (test code = 3062678207) Slight Negative LPF A SQ EPITH (test code = 9481902635) HPF Lab Interpretation (test code = 07610-1) Abnormal [facility]. METABOLIC PANEL (73120)2020-10-10 19:20:00* Test Item Value Reference Range Interpretation Comme nts NA (test code = 1483459302) 140 mmol/L 135-145 K (test code = 8415838259) 4.3 mmol/L 3.5-5 CL (test code = 2387983600) 103 mmol/L 98-108 CO2 TOTAL (test code = 0964782671) 27 mmol/L 23-31 AGAP (test code = 4322121340) 2-16 BUN (test code = 7977989621) 12 mg/dL 7-23 GLUCOSE (test code = 6805454581) 102 mg/dL 70-110 CREATININE (test code = 2903704588) 0.75 mg/dL 0.5-1.04 TOTAL BILI (test code = 3984486470) 0.3 mg/dL 0.1-1.1 CALCIUM (test code = 4422960476) 9.1 mg/dL 8.6-10.6 T PROTEIN (test code = 9100610201) 7.4 g/dL 6.3-8.2 ALBUMIN (test code = 4245875235) 4.3 g/dL 3.5-5 ALK PHOS (test code = 9386575904) 63 U/L 34-122 ALTv (test code = 1742-6) 22 U/L 5-35 AST(SGOT) (test code = 5776561063) 20 U/L 13-40 eGFR Calculation (Non-) (test code = 6561047138) mL/min/1.73m2 eGFR Calculation () (test code = 5323461614) mL/min/1.73m2 JOANN (test code = JOANN) Association of Glomerular Filtration Rate (GFR) and Staging of Kidney Disease* + -+ + ---+| GFR (mL/min/1.73 m2) ?| With Kidney Damage ?| ?Without Kidney Damage+ -------+ ------+ ---------+| ?>90 ?| ?Stage one ?| ? Normal ?+ --+ -+ ----+| ?60-89 ?| ?Stage two ?| ? Decreased GFR ? + -+ + ---+| ?30-59 ?| ?Stage three ?| ? Stage three ? + -+ + ---+| ?15-29 ?| ?Stage four ? | ? Stage four ?+ --+ -+ ----+| ?<15 (or dialysis) ? ?| ?Stage five ? | ? Stage five ?+ --+ -+ ----+ *Each stage assumes the associated GFR level has been in effect for at least three months. ?Stages 1 to 5, with or without kidney disease, indicate chronic kidney disease. Notes: Determination of stages one and two (with eGFR >59mL/min/1.73 m2) requires estimation of kidney damage for at least three months as defined by structural or functional abnormalities of the kidney, manifested by either:Pathological abnormalities or Markers of kidney damage (including abnormalities in the composition of the blood or urine or abnormalities in imaging tests). [facility]LIPASE2020-12-[facility] 19:20:00* Test Item Value Reference Range Interpretation Comme nts LIPASE (test code = 1118082649) 62 U/L 0-220 Lab Interpretation (test cod e = 88004-5) Normal [facility]MAGNESIUM2020-12-01 19:20:00* Test Item Value Reference Range Interpretation Comme nts MAGNESIUM (test code = 6161209669) 2.0 mg/dL 1.7-2.4 Lab Interpretation (test cod e = 96891-3) Normal [facility] WITH [id number] 19:09:00* Test Item Value Reference Range Interpretation Comme nts WBC (test code = 6690-2) See_Comment [Automated messa ge] The system which generated this result transmitted reference range: 4.30 - 11.10 10*3/?L. The reference range was not used to interpret this result as normal/abnormal. RBC (test code = 789-8) See_Comment L [Automated messa ge] The system which generated this result transmitted reference range: 3.93 - 5.25 10*6/?L. The reference range was not used to interpret this result as normal/abnormal. HGB (test code = 718-7) 6.8 g/dL 11.6-15 L HCT (test code = 4544-3) 23.3 % 35.7-45.2 L MCV (test code = 787-2) 77.2 fL 80.6-95.5 L MCH (test code = 785-6) 22.5 pg 25.9-32.8 L MCHC (test code = 786-4) 29.2 g/dL 31.6-35.1 L RDW-SD (test code = 61740-6) 44.3 fL 39-49.9 RDW-CV (test code = 788-0) 15.9 % 12-15.5 H PLT (test code = 777-3) See_Comment H [Automated messa ge] The system which generated this result transmitted reference range: 166 - 358 10*3/?L. The reference range was not used to interpret this result as normal/abnormal. MPV (test code = 44909-6) 10.2 fL 9.5-12.9 NRBC/100 WBC (test code = 3937549674) See_Comment [Automated me ssage] The system which generated this result transmitted reference range: 0.0 - 10.0 /100 WBCs. The reference range was not used to interpret this result as normal/abnormal. NRBC x10^3 (test code = 1732128865) <0.01 See_Comment [Automated messa ge] The system which generated this result transmitted reference range: 10*3/?L. The reference range was not used to interpret this result as normal/abnormal. GRAN MAT (NEUT) % (test code = 770-8) 74.9 % IMM GRAN % (test code = 8410598258) 0.50 % LYMPH % (test code = 736-9) 16.4 % MONO % (test code = 5905-5) 5.8 % EOS % (test code = 713-8) 1.6 % BASO % (test code = 706-2) 0.8 % GRAN MAT x10^3(ANC) (test code = 1925407553) 7.79 10*3/uL 1.88-7.09 H IMM GRAN x10^3 (test code = 6817254089) 0.05 10*3/uL 0-0.06 LYMPH x10^3 (test code = 731-0) 1.71 10*3/uL 1.32-3.29 MONO x10^3 (test code = 742-7) 0.60 10*3/uL 0.33-0.92 EOS x10^3 (test code = 711-2) 0.17 10*3/uL 0.03-0.39 BASO x10^3 (test code = 704-7) 0.08 10*3/uL 0.01-0.07 H Lab Interpretation (test code = 96050-9) Abnormal [facility]PO[facility] [id number] 18:56:00* Test Item Value Reference Range Interpretation Comme nts POCT PREG (test code = 1605) negative On board controls acceptable with C Line (test code = 3574) present POCT PREG LOT # (test code = 3575) [id number] POCT PREG TEST DATE ( test code = 3576) 2022-03-09 Lab Interpretation (test cod e = 69613-3) Normal [facility] Notes Date/Time Note Provider Source 2025-03-06 01:16:59 Discharge instructions reviewed with patient. Patient ambulatory to lobby in no distress. [facility] 2025-03-06 00:50:54 Patient placed on discharge hold for registration. [facility] 2025-03-05 22:07:57 Randolph Metzger is a 29 year old female received ambulatory to triage complaining of "dark red drops of blood when I tried going to the bathroom today." Patient reports last BM this morning, states it was diarrhea, denies blood in stool then. Patient reports taking pepto bismol and "something to help me go to the bathroom but I still haven't gone." Patient reports some abdominal cramping, states had hemorrhoids when 10 years ago. Patient is A&OX4, appears uncomfortable. To green chairs due to ED saturation. T Lidya Coats RN [facility] 2025-02-01 07:59:31 Chief Complaint Patient presents with Follow-up Follow up on weight management Destiny Hope MA [facility] 2024-12-21 08:27:05 Chief Complaint Patient presents with UTI She went [facility] last Friday for UTI symptoms. She was given antibiotics which she completed yesterday. She is still having right side low back pain. Destiny Hope MA [facility] 2024-08-26 10:11:55 Chief Complaint Patient presents with Establish Care No PCP within the past 3 years. Weight Problem Would like to discuss weight loss options. Destiny Hope [facility] 2024-07-07 05:52:58 Awake, alert oriented X4, respiratory even and unlabored,skin w/d color appropriate for race, moves all ext well, pt encouraged to follow up with pcp and or return as needed Pt given printed and verbal discharge instructions regarding epigastric pain. Patient verbalized understanding and signature obtained, patient denies any other concerns. Prescriptions provided Advised to seek medical attention for new/prolonged/worsening of symptoms. No adverse reaction to meds given in ER noted upon discharge. [facility] Zoey Burk RN [facility] 2024-07-07 03:32:42 Pt arrives ambulatory to ED c/o epigastric pain and vomiting that began @ aprox 0100. Lidya Walker RN [facility] 2023-11-22 06:06:41 Pt given printed and verbal discharge instructions regarding dental infection Prescriptions provided Discussed ibuprofen and to take with food to avoid GI distress. Discussed antibiotic therapy and to take until all completed unless adverse reaction occurs - if occurs, discontinue medication and follow up with pcp/seek medical attention Discussed Tylenol # 3 side affects and to avoid driving/operating machinery/or engaging in activities requiring alertness while taking. Pt verbalized understanding of instructions, pt awake alert oriented, resp reg unlabored, skin w/d, color appropriate for race, moves all ext well,pt encouraged to follow up with pcp Advised to seek medical attention for new/prolonged/worsening of symptoms No adverse reaction to meds given in ER noted upon discharge PIV d'cd, dressing to site, catheter in tact. 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 Patient denies fever. Left side of mandibular swollen. 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 Past Medical History/Immunizations: No past medical history on file. Tetanus received in last 5 years: Unknown Allergies: No Known Allergies Past Social History: Tobacco Use Former Smokeless Tobacco: Never used smokeless tobacco. Alcohol Use Not Currently. Drug Use Never. Sexual Activity Sexually active. Past Surgical History: No past surgical history on file. Review of Systems: Review of Systems Constitutional: Negative for chills and fatigue. HENT: Positive for congestion, dental problem, ear pain and facial swelling. Negative for drooling, ear discharge, hearing loss, mouth sores, nosebleeds, postnasal drip, rhinorrhea, sinus pressure, sneezing, sore throat, tinnitus, trouble swallowing and voice change. Eyes: Negative. Respiratory: Negative. Cardiovascular: Negative. Gastrointestinal: Negative. Musculoskeletal: Negative for neck pain and neck stiffness. Physical Exam: ED Triage Vitals [11/22/23 0519] Weight 105 kg (231 lb 6.4 oz) Actual or estimated Actual Height 1.575 m (5' 2") BP (!) 149/96 Pulse 70 Resp 16 Temp 36.8 ?C (98.2 ?F) Temp source Oral SpO2 100 % Measured on Room air Physical Exam Vitals and nursing note reviewed. Constitutional: General: She is not in acute distress. Appearance: Normal appearance. She is not ill-appearing, toxic-appearing or diaphoretic. HENT: Head: Normocephalic. Right Ear: Tympanic membrane normal. Ears: Comments: Left TM, bulging, clear Nose: Congestion present. Mouth/Throat: Mouth: Mucous membranes are moist. Pharynx: No oropharyngeal exudate or posterior oropharyngeal erythema. Comments: Left lower molar decay/fx Eyes: Pupils: Pupils are equal, round, and reactive to light. Neck: Vascular: No carotid bruit. Musculoskeletal: General: Normal range of motion. Cervical back: Tenderness present. No rigidity. Lymphadenopathy: Cervical: No cervical adenopathy. Skin: General: Skin is warm. Neurological: Mental Status: She is alert. Radiology: No orders to display Lab Results: Lab Results - No data to display EKG: If EKG completed, see Procedure Note. Orders and Treatments: No orders of the defined types were placed in this encounter. Orders Placed This Encounter Medications clindamycin (CLEOCIN HCL) capsule 300 mg HYDROcodone-acetaminophen (NORCO) 10-325 mg tablet 1 tablet ondansetron (ZOFRAN-ODT) disintegrating tablet 4 mg First Provider Eval: ED Events None ED COURSE Diagnosis/Impression as of 11/22/23 0550 Dental infection Procedures: Procedures MDM: Medical Decision Making Risk Prescription drug management. A) Left Lower Dental decay/fx., Left Jaw pain/swelling--likely related to dentition vs. parotitis Disposition/Condition: Home, rest, Clindamycin, Ibuprofen prn, Dental evaluation jinny, ER warnings. ED Disposition None Discharge Medications: Patient's Medications No medications on file Follow-up: Dentist and PCP Electronically signed by: Mani Jordan MD 11/22/23 0543 [facility]
[2025-03-06] MEDS ORDERED: MORPHINE 4 MG/ML SYR ONE (20:34)
[2025-03-06] MEDS ORDERED: ONDANSETRON 4 MG/2 ML VIAL ONE (20:34)
[2025-03-06] MEDS ORDERED: NA CHLORIDE 0.9% 1,000 ML ONE (20:35)
[2025-03-06 20:46] LABS: Absolute Eosinophils 0.3 K/uL (0-0.5); Absolute Lymphocytes (CBC) 1.5 K/uL (0.7-4.9); Absolute Monocytes 0.6 K/uL (0.1-1.3); Absolute Neutrophil 6.8 K/uL (1.8-8.0); Basophils % 0.5 % (0-1.3); Eosinophils % 2.8 % (0-4.4); Hematocrit 35.5 % (36.0-45.0); Lymphocytes % 16.3 % (15.3-44.8); MCH 30.6 pg (27.0-35.0); MCHC 33.9 g/dL (32.0-36.0); MCV 90.1 fL (80-100); MPV 9.2 fL (7.6-11.3); Monocytes % 6.5 % (3.3-12.3); Neutrophils % 73.9 % (41.7-73.7); Platelets 313 thou/uL (152-406); RBC Red Blood Cell Count 3.94 M/uL (3.86-4.86); Red Cell Distribution Width 13.6 % (12.1-15.2)
[2025-03-06 21:02] LABS: ALT/SGPT 19 U/L (13-56); Albumin 3.8 g/dL (3.4-5.0); Albumin/Globulin Ratio 1.1 (1.1-1.8); Alkaline Phosphatase 66 U/L (45-117); Anion Gap 6.8 mEq/L (5.0-15.0); BUN Blood Urea Nitrogen 10 mg/dL (7-18); Bicarbonate 27 mEq/L (21-32); Bilirubin Total 0.4 mg/dL (0.2-1.0); Globulin 3.6 g/dL (2.3-3.5); Glomerular Filtration Rate 82 ml/min (=/>90); Glucose Level 99 mg/dL (74-106); Lipase 23 U/L (13-75); Potassium 3.8 mEq/L (3.5-5.1); Protein, Total 7.4 g/dL (6.4-8.2); Sodium Level 138 mEq/L (136-145)
[2025-03-06 21:05] LABS: AST/SGOT < 10 U/L (15-37)
[2025-03-06 21:21] LABS: Specific Gravity 1.021 (1.005-1.030); Urine Bacteria None Seen /HPF (<20); Urine Bilirubin NEGATIVE (Negative); Urine Blood Negative (Negative); Urine Clarity Extremely Turbid (Clear); Urine Color Light-Yellow (Yellow); Urine Crystals Unidentified Few /HPF (None Seen); Urine Culture Reflex Order NOT NEEDED; Urine Glucose NEGATIVE (Negative); Urine Ketones NEGATIVE (Negative); Urine Microscopic Reflex YN ORDER UMIC; Urine Mucus Slight /HPF (None Seen); Urine Nitrite NEGATIVE (Negative); Urine Protein TRACE (Negative); Urine RBC <5 /HPF (None Seen); Urine Urobilinogen 1+ (Normal); Urine pH 8.5 (5.0-7.0)
[2025-03-06 22:14] LABS: Specific Gravity 1.021 (1.005-1.030)
[2025-03-06] MEDS ORDERED: CIPROFLOXACIN HCL 500 MG TAB ONE (23:44)
[2025-03-06] MEDS ORDERED: metroNIDAZOLE 500 MG TABLET ONE (23:45)
--- NOTE | 2025-03-06 23:46 | RAD REPORT ---
EXAM: CT Abdomen and Pelvis With Intravenous Contrast CLINICAL HISTORY: Rectal Bleeding; Abd pain TECHNIQUE: Axial computed tomography images of the abdomen and pelvis with intravenous contrast. Sagittal and coronal reformatted images were created and reviewed. This CT exam was performed using one or more of the following dose reduction techniques: automated exposure control, adjustment of the mA a nd/or kV according to patient size, and/or use of iterative reconstruction technique. COMPARISON: CT Abdomen Pelvis dated 04/02/2019 FINDINGS: Lung bases: Unremarkable. No mass. No consolidation. ABDOMEN: Liver: Unremarkable. No mass. Gallbladder and bile ducts: Unremarkable. No calcified stones. No ductal dilation. Pancreas: Unremarkable. No mass. No ductal dilation. Spleen: Unremarkable. No splenomegaly. Adrenals: Unremarkable. No mass. Kidneys and ureters: Unremarkable. Normal renal cortical enhancement. No calculi. No hydronephros is. Stomach and bowel: Intramural fat within portions of the large bowel which can be seen in the setti ng of prior inflammation. Thickening of the mid to distal descending colon with surrounding infiltrative changes. No bowel obstruction. Trace fluid in the rectovesical space. PELVIS: Appendix: Normal caliber appendix. No findings to suggest acute appendicitis. Bladder: Unremarkable. No mass. Reproductive: Unremarkable as visualized. ABDOMEN and PELVIS: Intraperitoneal space: Unremarkable. No free air. No significant fluid collection. Bones/joints: No acute fracture. No dislocation. Soft tissues: Tiny fat-containing umbilical hernia. Vasculature: Unremarkable. No abdominal aortic aneurysm. Lymph nodes: Unremarkable. No enlarged lymph nodes. IMPRESSION: 1. Findings compatible with nonspecific colitis involving the mid to distal descending colon. 2. Other findings as above. Electronically signed by: Andrew Mcfadden MD 03/06/2025 11:38 PM CDT Due to temporary technical issues with the PACS/[employer] reporting system, reports are being soraya d by the in-house radiologist without review as a courtesy to ensure prompt reporting the interpreting radiologist is fully responsible for the content of the report. Transcribed Date/Time: 03/06/2025 11:46 PM
--- NOTE | 2025-03-06 23:53 | ER ---
Nurse's Notes [facility] Name: Randolph Metzger Age: 29 yrs Sex: Female : 1995 Arrival Date: 03/06/2025 Time: 17:47 Bed 11 Private MD: Diagnosis: Other specified noninfective gastroenteritis and colitis Presentation: 03/06 18:25 Chief complaint: Patient states: lower back pain that radiates to RLQ, LLQ. Took me1 laxative yesterday evening for constipation but has only had bright red bloody diarrhea after. Today she has only had one dark black stool. c/o nausea as well. Coronavirus screen: At this time, the client does not indicate any symptoms associated with coronavirus-19. Ebola Screen: No symptoms or risks identified at this time. Initial Sepsis Screen: Does the patient meet any 2 criteria? HR > 90 bpm. Does the patient have a suspected source of infection? No. Patient's initial sepsis screen is negative. Risk Assessment: Do you want to hurt yourself or someone else? Patient reports no desire to harm self or others. Onset of symptoms was March 05, 2025. 18:25 Method Of Arrival: Amb[place] [facility] 18:25 Acuity: SOPHIA 3 me1 Triage Assessment: 20:00 General: Appears comfortable, Behavior is calm, cooperative. Pain: Complains of pain in ha1 right lower quadrant and lumbar area Pain currently is 8 out of 10 on a pain scale. Neuro: Level of Consciousness is awake, alert, obeys commands, Oriented to person, place, time, situation. Cardiovascular: Capillary refill < 3 seconds Patient's skin is warm and dry. Respiratory: Airway is patent Respiratory effort is even, unlabored, Respiratory pattern is regular, symmetrical. GI: Abdomen is round non-distended, Bowel sounds present X 4 quads. Reports lower abdominal pain, upper abdominal pain. : No signs and/or symptoms were reported regarding the genitourinary system. Musculoskeletal: Circulation, motion, and sensation intact. 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 - Infectious Disease History:: Denies. - Social history:: Smoking status: Patient denies any tobacco usage or history of. Screenin/28 00:01 [facility] ED Fall Risk Assessment (Adult) History of falling in the last 3 months, ha1 including since admission No falls in past 3 months (0 pts) Confusion or Disorientation No (0 pts) Intoxicated or Sedated No (0 pts) Impaired Gait No (0 pts) Mobility Assist Device Used No (0 pt) Altered Elimination No (0 pt) Score/Fall Risk Level 0 - 2 = Low Risk Oriented to surroundings, Maintained a safe environment, Hourly rounding (assess needs \T\ fall precautionary measures) done. Abuse screen: Denies threats or abuse. Denies injuries from another. Nutritional screening: No deficits noted. Tuberculosis screening: No symptoms or risk factors identified. Assessment: 03/06 20:50 General: Appears uncomfortable, Behavior is calm, cooperative. Pain: Complains of pain ha1 in right lower quadrant and lumbar area Pain currently is 7 out of 10 on a pain scale. Neuro: Level of Consciousness is awake, alert, obeys commands, Oriented to person, place, time, situation. Cardiovascular: Capillary refill < 3 seconds Patient's skin is warm and dry. Respiratory: Airway is patent Respiratory effort is even, unlabored, Respiratory pattern is regular, symmetrical. GI: Abdomen is round non-distended, Bowel sounds present X 4 quads. Abd is soft and non tender Reports lower abdominal pain, upper abdominal pain, bloody stool. 23:40 Reassessment: Patient and/or family updated on plan of care and expected duration. Pain ha1 level reassessed. Patient is alert, oriented x 3, equal unlabored respirations, skin warm/dry/pink. Patient states feeling better. Patient states symptoms have improved. Vital Signs: 18:25 BP 117 / 74; Pulse 108; Resp 19; Temp 98.6; Pulse Ox 100% ; Weight 101.6 kg; Height 5 me1 ft. 2 in. ; Pain 8/10; 22:15 BP 124 / 84; Pulse 86; Resp 18; Temp 98.6; Pulse Ox 99% ; dr5 23:40 BP 125 / 85; Pulse 78; Resp 17 S; Pulse Ox 98% on R/A; ha1 18:25 Body Mass Index 40.97 (101.60 kg, 157.48 cm) me1 18:25 Pain Scale: Adult sd1 ED Course: 17:51 Patient arrived in ED. sj2 17:54 Patel Hancock FNP-C is PHCP. dr5 17:54 Neeraj Dietrich MD is Attending Physician. dr5 18:29 Triage completed. me1 18:29 Arm band placed on Patient placed in waiting room. me1 20:00 Patient has correct armband on for positive identification. Placed in gown. Bed in low ha1 position. Call light in reach. Side rails up X 1. 20:36 Radiology exam delayed due to lab results not completed at this time. (BUN/Creatinine) sm9 test not completed at this time. 20:37 CBC with Diff Sent. ha1 20:37 CMP Sent. ha1 20:37 Lipase Sent. ha1 20:49 Inserted saline lock: 20 gauge antecubital area, using aseptic technique. Blood ha1 collected. Flushed with 10 mL NS. 20:51 Test, Urine Sent. oe 20:52 Urinalysis w/ reflexes Sent. oe 22:27 Inserted saline lock: 22 gauge in left hand, using aseptic technique. Flushed with 10 oe mL NS. 22:53 CT Abd/Pelvis - IV Contrast Only In Process Unspecified. EDMS 03/07 00:04 No provider procedures requiring assistance completed. IV discontinued, intact, ha1 bleeding controlled, No redness/swelling at site. Pressure dressing applied. Administered Medications: 03/06 20:48 Drug: Ondansetron IVP 4 mg IVP once; over 2 minutes Route: IVP; Site: right antecubital;ha1 21:10 Follow up: Response: No adverse reaction; Marked relief of symptoms ha1 20:48 Drug: NS 0.9% IV 1000 ml IV at 1 bolus Per protocol; to be given as a bolus over 60 ha1 minutes Route: IV; Rate: 1 bolus; Site: right antecubital; 23:00 Follow up: Response: No adverse reaction; IV Status: Completed infusion ha1 20:49 Drug: morphine IVP or IV 4 mg IVP once over 4 mins Route: IVP; Infused Over: 4 mins; ha1 Site: right antecubital; 21:10 Follow up: Response: No adverse reaction; Marked relief of symptoms; Pain is decreased ha1 23:46 Drug: Ciprofloxacin PO 500 mg PO once Route: PO; dr5 03/07 00:00 Follow up: Response: No adverse reaction ha1 03/06 23:46 Drug: metroNIDAZOLE PO 500 mg PO once Route: PO; dr5 03/07 00:00 Follow up: Response: No adverse reaction ha1 Medication: 00:05 VIS not applicable for this client. ha1 Outcome: 03/06 23:52 Discharge ordered by . dr5 03/07 00:04 Discharged to home ambulatory, ha1 Condition: stable Discharge instructions given to patient, Instructed on discharge instructions, follow up and referral plans. Demonstrated understanding of instructions, follow-up care, Prescriptions given X 4, 00:05 Patient left the ED. ha1 Signatures: Dispatcher [employer] EDMS Moises Gatica Heidy RN RN ha1 Josefa Renae RN RN me1 Alice Leigh Sonceria 2 Patel Hancock, CONFIDENTIAL INVESTIGATOR-C CONFIDENTIAL INVESTIGATOR-Cdr5 Corrections: (The following items were deleted from the chart) 03/06 18:30 18:29 Home Meds: None; me1 me1 03/07 05:05 03/06 23:00 Reassessment: Patient and/or family updated on plan of care and expected ha1 duration. Pain level reassessed. Patient is alert, oriented x 3, equal unlabored respirations, skin warm/dry/pink. ha1
--- NOTE | 2025-03-06 23:53 | EDPHYS ---
Physician Documentation [facility] Name: Randolph Metzger Age: 29 yrs Sex: Female : 1995 Arrival Date: 03/06/2025 Time: 17:47 Bed 11 Private MD: ED Physician Neeraj Dietrich HPI: 03/06 18:34 This 29 yrs old Female presents to ER via Ambulatory with complaints of Low dr5 Back Pain, Abdominal Pain, Bloody Stools. 18:34 The patient presents with pain that is acute, with no known mechanism of injury. The dr5 symptoms are located in the lumbar area. Patient is a 29-year-old female with no past medical history coming in with midline lower back pain, bright red bloody stools yesterday with diarrhea, and 1 episode of diarrhea with black stool today. Patient reports that she went to an ER yesterday and was told that she had hemorrhoids. Patient did not receive a CT scan yesterday.. 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 - Infectious Disease History:: Denies. - Social history:: Smoking status: Patient denies any tobacco usage or history of. ROS: 18:34 Constitutional: as per hpi dr5 Exam: 18:34 Constitutional: This is a well developed, well nourished patient who is awake, alert, dr5 and in no acute distress. Head/Face: Normocephalic, atraumatic. Eyes: Pupils equal round and reactive to light, extra-ocular motions intact. Lids and lashes normal. Conjunctiva and sclera are non-icteric and not injected. Cornea within normal limits. Periorbital areas with no swelling, redness, or edema. Neck: Trachea midline, no thyromegaly or masses palpated, and no cervical lymphadenopathy. Supple, full range of motion without nuchal rigidity, or vertebral point tenderness. No Meningismus. Chest/axilla: Normal chest wall appearance and motion. Nontender with no deformity. No lesions are appreciated. Cardiovascular: Regular rate and rhythm with a normal S1 and S2. Normal PMI, no JVD. No pulse deficits. Respiratory: Lungs have equal breath sounds bilaterally, clear to auscultation. No rales, rhonchi or wheezes noted. No increased work of breathing, no retractions or nasal flaring. Back: No spinal tenderness to palpation. No costovertebral tenderness. Full range of motion. 18:34 Skin: Warm, dry with normal turgor. Normal color with no rashes, no lesions, and no evidence of cellulitis. Neuro: Awake and alert, GCS 15, oriented to person, place, time, and situation. Cranial nerves II-XII grossly intact. Motor strength 5/5 in all extremities. Sensory grossly intact. Cerebellar exam normal. Normal gait. 18:34 Abdomen/GI: Palpation: mild abdominal tenderness, in the right lower quadrant and left lower quadrant, Vital Signs: 18:25 BP 117 / 74; Pulse 108; Resp 19; Temp 98.6; Pulse Ox 100% ; Weight 101.6 kg; Height 5 me1 ft. 2 in. ; Pain 8/10; 22:15 BP 124 / 84; Pulse 86; Resp 18; Temp 98.6; Pulse Ox 99% ; dr5 23:40 BP 125 / 85; Pulse 78; Resp 17 S; Pulse Ox 98% on R/A; ha1 18:25 Body Mass Index 40.97 (101.60 kg, 157.48 cm) me1 18:25 Pain Scale: Adult me1 MDM: 18:06 Medical Screening Exam initiated dr5 03/07 00:25 Differential diagnosis: strain, UTI, Coliitis. Data reviewed: vital signs, nurses dr5 notes, lab test result(s), radiologic studies, CT scan. I considered the following discharge prescriptions or medication management in the emergency department Medications were administered in the Emergency Department. See MAR. Care significantly affected by the following Social Determinants of Health: Poor access to healthcare and/or lack of insurance, Poor access to transportation, Problems related to employment. Counseling: I had a detailed discussion with the patient and/or guardian regarding the historical points, exam findings, and any diagnostic results supporting the discharge/admit diagnosis, the presence of at least one elevated blood pressure reading (>120/80) during this emergency department visit, lab results, radiology results, the need for outpatient follow up, for definitive care, a family practitioner, a mechanical piping designer, to return to the emergency department if symptoms worsen or persist or if there are any questions or concerns that arise at home. ED course: Patient found to have mild urinary tract infection as well as colitis. Will cover for with Cipro and Flagyl. First dose given p.o. in ER. All questions answered. Recommended clear liquid diet as well as high-fiber foods. . 00:26 ED course: CT scan and blood work were printed out and given to patient to take to [facility] primary care doctor. Patient reports she is feeling much better. Strict ER precautions given. 03/06 18:30 Order name: CBC with Diff; Complete Time: 20:59 [facility] 03/06 18:30 Order name: CMP; Complete Time: 21:09 [facility] 03/06 18:30 Order name: Lipase; Complete Time: 21:09 [facility] 03/06 18:30 Order name: Test, Urine; Complete Time: 22:32 [facility] 03/06 18:30 Order name: Urinalysis w/ reflexes; Complete Time: 21:40 [facility] 03/06 18:30 Order name: CT Abd/Pelvis - IV Contrast Only [facility] 03/06 18:30 Order name: IV Saline Lock; Complete Time: 20:37 [facility] 03/06 18:30 Order name: Labs collected and sent; Complete Time: 20:37 [facility] Administered Medications: 03/06 20:48 Drug: Ondansetron IVP 4 mg IVP once; over 2 minutes Route: IVP; Site: right antecubital;ha1 21:10 Follow up: Response: No adverse reaction; Marked relief of symptoms ha1 20:48 Drug: NS 0.9% IV 1000 ml IV at 1 bolus Per protocol; to be given as a bolus over 60 ha1 minutes Route: IV; Rate: 1 bolus; Site: right antecubital; 23:00 Follow up: Response: No adverse reaction; IV Status: Completed infusion ha1 20:49 Drug: morphine IVP or IV 4 mg IVP once over 4 mins Route: IVP; Infused Over: 4 mins; ha1 Site: right antecubital; 21:10 Follow up: Response: No adverse reaction; Marked relief of symptoms; Pain is decreased ha1 23:46 Drug: Ciprofloxacin PO 500 mg PO once Route: PO; [facility] 03/07 00:00 Follow up: Response: No adverse reaction ha1 03/06 23:46 Drug: metroNIDAZOLE PO 500 mg PO once Route: PO; dr5 03/07 00:00 Follow up: Response: No adverse reaction ha1 Disposition Summary: 03/06/25 23:52 Discharge Ordered Notes: Location: Home dr5 Condition: Stable dr5 Diagnosis - Other specified noninfective gastroenteritis and colitis dr5 Followup: dr5 - With: Emergency Department - When: As needed - Reason: Worsening of condition Followup: dr5 - With: Private Physician - When: 1 - 2 days - Reason: Recheck today's complaints, Continuance of care, Re-evaluation by your physician Discharge Instructions: - Discharge Summary Sheet dr5 - Colitis dr5 Forms: - Work release form dr5 - Family Work Release dr5 - Medication Reconciliation Form dr5 - Antibiotic Education dr5 - Prescription Opioid Use dr5 - Patient Portal Instructions dr5 - Leadership Thank You Letter dr5 Prescriptions: - Flagyl 500 mg Oral Tablet - take 1 tablet ORAL route every 12 hours for 7 days; 14 tablet; Refills: 0, dr5 Product Selection Permitted - Zofran 4 mg Oral Tablet - take 1 tablet ORAL route every 12 hours As needed; 20 tablet; Refills: 0, dr5 Product Selection Permitted - Cipro 500 mg Oral Tablet - take 1 tablet ORAL route every 12 hours for 7 days; 14 tablet; Refills: 0, dr5 Product Selection Permitted - Tramadol 50 mg Oral Tablet - take 1 tablet ORAL route every 8 hours as needed; 12 tablet; Refills: 0, dr5 Product Selection Permitted Signatures: Dispatcher [employer] EDMS Rhea Salinas RN RN ha1 Josefa Renae RN RN me1 Patel Hancock, MILL OPERATOR-C MILL OPERATOR-Cdr5 Corrections: (The following items were deleted from the chart) 03/06 18:30 18:30 CBC+H.LAB.BRZ ordered. EDMS EDMS 18:30 18:30 COMPREHENSIVE METABOLIC PANEL+C.LAB.BRZ ordered. EDMS EDMS 18:30 18:30 LIPASE+C.LAB.BRZ ordered. EDMS EDMS 18:30 18:30 Test, Urine+UC.LAB.BRZ ordered. EDMS EDMS 18:30 18:30 Urinalysis+U.LAB.BRZ ordered. EDMS EDMS 18:30 18:29 Home Meds: None; me1 me1
[2025-03-08 09:55] VITALS: BP 117/74; TEMP 98.6; O2SAT 100
== END 2025-03-07 00:05 | disposition home or self-care (01) ==
LOC: ER 17:47
DX: K52.89 Other specified noninfective gastroenteritis and colitis (principal)
CPT/HCPCS: 36415; 74177; 80053; 81001; 81025; 83690; 85025; 96361; 96374; 96375; 99284; J2405; J7030; Q9967